=== PATIENT | male | born 1960 | race Caucasian/White ===

== ENCOUNTER → 2016-09-10 | Day surgery (SDC) | payer OTHER ==
[~2016-09-10] MED LIST: ATOR20TA58 PO; BISA-42 PO; CARV3.12 PO; DILT180C2 PO; FENTANYL PF 100 MCG/2 ML VIAL. IV PRN; GLYCOPYRROLATE 1 MG/5 ML VIAL. ONE; HYDROMORPHONE 2 MG/ML VIAL. IV PRN; IV RINGERS,LACTATED 1000ML 1,000 ML IV SCH; LIDOCAINE 1% 1 ML SYRINGE. ID PRN; LIDOCAINE 2% PF Vial for OR 5 ML VIAL. ONE; LOSA50TA6 PO; MORPHINE SULFATE 2 MG/ML DISP.SYRIN. IV PRN; ONDANSETRON PF 4 MG/2 ML VIAL. IV PRN; PROCHLORPERAZINE 10 MG/2 ML VIAL. IV PRN; PROPOFOL 40 ML IV ONE
[2016-09-10 10:15] VITALS: BP 121/76
--- NOTE | 2016-09-11 04:34 | HP ---
ADMIT DATE: 09/10/2016 REFERRING PHYSICIAN: ____ [facility]. HISTORY OF PRESENT ILLNESS: A 56-year-old male with past medical history significant for hyperlipidemia, hypertension, history of colonic polyps, who is seen for surveillance exam. I did notice bleeding approximately 2 months ago, which was ____ on its own, there has been no change in bowel habits, apparently ____ flatus well. With the continued symptoms history, recommend re-request the surveillance colonoscopy. PAST MEDICAL HISTORY: Hyperlipidemia, hypertension and history of colonic polyps. ALLERGIES: PENICILLIN. MEDICATIONS: Include Atorvastatin, Coreg, Cardizem and losartan. SOCIAL HISTORY: ____ does not drink. He is an ex-smoker. FAMILY HISTORY: Noncontributory. PAST SURGICAL HISTORY: Noncontributory. REVIEW OF SYSTEMS: HEENT: There is no decrease in visual acuity issues. CARDIAC: There is history of hypertension. ENDOCRINE: History of hyperlipidemia. PULMONARY: No shortness breath, productive cough or asthma. RENAL: No dysuria, frequency or hematuria. NEUROLOGIC: No stroke or migraine. PSYCHIATRIC: No mood swings, depression or insomnia. GASTROINTESTINAL: See history of present illness. HEMATOLOGIC: No bleeding, bruising or coagulopathy. PHYSICAL EXAMINATION: GENERAL: Reveals a well-nourished, well-developed male. VITAL SIGNS: Temperature is 97.6, pulse is 40, respirations 18. HEENT: Normocephalic, atraumatic head. Pupils and extraocular muscles not tested. Sclerae anicteric. NECK: Supple. LUNGS: Clear. CARDIOVASCULAR: Reveals an S1, S2 without S3, S4 or appreciable murmur. ABDOMEN: Reveals a soft abdomen, normal bowel sounds, without appreciable hepatosplenomegaly. EXTREMITIES: Reveals no cyanosis, clubbing or edema. IMPRESSION: Rectal bleeding, history of colonic polyps. Surveillance exam was recommended at this time. Risks and benefits of the procedure including the risk of hemorrhage or perforation have been previously discussed. The patient is willing to proceed. I would like to thank ____ [facility] facilities for allowing me to consult and participate in the patient's care. ALLISON SEGOVIA MD DR: INEZ/ayaz JOB#: [id number] / [id number]
== END | disposition home or self-care (01) ==
LOC: ENDOS 08:15 → EEVIPCON 09:30
PROVIDERS: ATTEND Internal Medicine Gastroenterology
DX: K64.0 First degree hemorrhoids (principal); K57.30 Diverticulosis of large intestine without perforation or abscess without bleeding; E78.5 Hyperlipidemia, unspecified; I10 Essential (primary) hypertension
CPT/HCPCS: 45378; J2704; J3490

== ENCOUNTER 2021-10-12 14:50 | Inpatient (IN) | payer MEDICAID, OTHER ==
[2021-10-12] VITALS (7 sets, daily range): BP systolic 109–151; BP diastolic 51–73
[~2021-10-12] VITALS: Ht 190.5 cm; Wt 85.9 kg
[~2021-10-12 14:50] MED LIST changes: +ACET325T21 PO; +ALPH300C PO; +AMLO-187 PO; +ASPI-886 PO; +CALC0.25 PO; +CALC200T3 PO; +CALC667T4 PO; +CARV25TA2 PO; +DOCU-109 PO; -FENTANYL PF 100 MCG/2 ML VIAL. IV PRN; +FURO-69 PO; -GLYCOPYRROLATE 1 MG/5 ML VIAL. ONE; -HYDROMORPHONE 2 MG/ML VIAL. IV PRN; +IRON100V2 IV; +ISOS30TA68 PO; -IV RINGERS,LACTATED 1000ML 1,000 ML IV SCH; +KETO5DRO4 EACHEYE; +LACT1CAP19 PO; +LEVO500T59 PO; -LIDOCAINE 1% 1 ML SYRINGE. ID PRN; -LIDOCAINE 2% PF Vial for OR 5 ML VIAL. ONE; +LISI-130 PO; +LOSA-73 PO; -LOSA50TA6 PO; -MORPHINE SULFATE 2 MG/ML DISP.SYRIN. IV PRN; +ONDA8TAB9 PO; -ONDANSETRON PF 4 MG/2 ML VIAL. IV PRN; +PANT20TA2 PO; -PROCHLORPERAZINE 10 MG/2 ML VIAL. IV PRN; -PROPOFOL 40 ML IV ONE; +RANI300T PO; +VIT1TABL57 PO; +aranesp IVP
[2021-10-12 15:13] LABS: BASO % 0 % (0-3); EOS # 0.2 x10^3/uL (0.0-0.7); EOS % 2 % (0-3); HEMOGLOBIN 7.2 g/dL (13.0-17.5); LYMPH # 0.7 x10^3/uL (1.0-4.8); LYMPH % 10 % (24-48); MEAN CORPUSCULAR HEMOGLOBIN 29 pg (25-35); MEAN CORPUSCULAR HGB CONC 31 g/dL (31-37); MEAN CORPUSCULAR VOLUME 94 fL (79-100); MONO # 0.4 x10^3/uL (0.0-1.1); MONO % 6 % (0-9); NEUT # 5.8 x10^3/uL (1.8-7.7); NEUT % 81 % (31-73); PLATELET COUNT 186 x10^3/uL (140-400); RED BLOOD COUNT 2.46 x10^6/uL (4.30-5.70); RED CELL DISTRIBUTION WIDTH 23.3 % (11.5-14.5); WHITE BLOOD COUNT 7.1 x10^3/uL (4.0-11.0)
[2021-10-12] MEDS ORDERED: dilTIAZem HCL 125 MG in IV DEXTROSE 5% 100ML 100 ML IV ONE (15:15)
[2021-10-12] MEDS ORDERED: fentaNYL PF VIAL 100 MCG/2 ML VIAL IV PRN (15:15)
[2021-10-12 15:25] LABS: CALCIUM 9.9 mg/dL (8.5-10.1); CREATININE 7.2 mg/dL (0.7-1.3); GFR 7.8; POTASSIUM 5.1 mmol/L (3.5-5.1)
--- NOTE | 2021-10-12 15:27 | RAD ---
EXAM: CHEST 1 VIEW History: Chest pain COMPARISON: None available. TECHNIQUE: Single portable radiograph of the chest FINDINGS: Mild cardiomegaly. Mild airspace opacities bilateral lungs likely atelectasis or infiltrat es. The costophrenic sulci are clear and well demarcated. IMPRESSION: Mild airspace opacities bilateral lungs likely atelectasis or infiltrates. Electronically signed by: Skip Shoemaker MD (10/12/2021 3:24 PM) [id number]
[2021-10-12 15:30] LABS: ALBUMIN/GLOBULIN RATIO 1.1 (1.0-1.7); MAGNESIUM 2.1 mg/dL (1.8-2.4); TOTAL BILIRUBIN 1.2 mg/dL (0.2-1.0); TOTAL PROTEIN 7.5 g/dL (6.4-8.2)
--- NOTE | 2021-10-12 15:39 | EKG ---
[facility] [address] [place] [address] Test Date: 2021-10-12 Test Time: 15:31:30 Pat Name: FERNANDO WRAY Department: Room: Gender: Clerk Cashier: : 1960 Requested By: TERRIE CRAWFORD Order Number: [id number] Reading MD: Hernandez Goyal Measurements Intervals [place] Rate: 117 P: NC: QRS: -40 QRSD: 126 T: 108 QT: 338 QTc: 476 Interpretive Statements ATRIAL FIBRILLATION WITH RVR ABNORMAL LEFT AXIS DEVIATION NON SPECIFIC INTRAVENTRICULAR BLOCK Electronically Signed On 10-17-2021 21:50:49 CDT by Hernandez Goyal
--- NOTE | 2021-10-12 15:40 | EKG ---
[facility] [address] [place] [address] Test Date: 2021-10-12 Test Time: 14:55:44 Pat Name: FERNANDO WRAY Department: Room: Gender: M Renewals Manager: : 1960 Requested By: TERRIE CRAWFORD Order Number: [id number] Reading MD: Hernandez Goyal Measurements Intervals [place] Rate: 124 P: AR: QRS: -40 QRSD: 122 T: 103 QT: 324 QTc: 470 Interpretive Statements ATRIAL FIBRILLATION WITH RVR LEFT VENTRICULAR HYPERTROPHY Electronically Signed On 10-17-2021 21:51:16 CDT by Hernandez Goyal
[2021-10-12] MEDS ORDERED: ONDANSETRON PF 4 MG/2 ML VIAL. IVP PRN (16:30)
[2021-10-12] MEDS ORDERED: NITROGLYCERIN SUBLINGUAL 0.4 MG BOTTLE OF 25. SL PRN (16:30)
[2021-10-12] MEDS ORDERED: fentaNYL PF VIAL 100 MCG/2 ML VIAL IVP PRN (16:30)
[2021-10-12] MEDS ORDERED: HEPARIN for IV BOLUS 10,000 UNIT/10 ML VIAL. IV PRN (16:30)
[2021-10-12] MEDS ORDERED: ACETAMINOPHEN 325 MG TABLET. PO PRN ×2 (16:30→16:45)
[2021-10-12] MEDS ORDERED: oxyCODONE/APAP 5/325 1 TAB TABLET PO PRN (16:45)
[2021-10-12] MEDS ORDERED: ELECTROLYTE (NON-ICU) PROTOCOL. MC PRN (16:45)
[2021-10-12] MEDS ORDERED: ZOLPIDEM 5 MG TABLET. PO PRN (16:45)
[2021-10-12] MEDS ORDERED: CALCIUM CARBONATE 500 MG TAB.CHEW PO PRN (16:45)
--- NOTE | 2021-10-12 16:48 | PDOC1 ---
History and Physical Date of Service: DOS: DATE: 10/12/21 TIME: 16:48 Chief Complaint: Chief Complain: Chest pain History of Present Illness: HPI: Patient is 61-year-old male prisoner who presented to the emergency room today due to chest pain. Patient has a history of ESRD and was getting dialysis when he felt he described as a lot of pressure on his chest along with fluttering. Reports never having a feeling like this before. Does report having a history of cardiomyopathy however has not seen a doctor in many years. Is on blood pressure medication through his jail. Does report the chest pressure is going up into his neck as well. Patient noted to be in A. fib with RVR in the emergency room. Started on Cardizem drip. Cardiology consulted. Past Medical/Surgical History: PMH/PSH: Additional Past Medical Histor: cardiomyopathy, ESRD Tuesday di alysis Additional Past Surgical Histo: left arm Fistula Smoking Status: Former Smoker Alcohol Use: None. No drug use Allergies: Allergies: Coded Allergies: Penicillins (Verified Allergy, Severe, ANAPHYLAXIS, 09/10/16) Family History: Family History: Hypertension Current Medications: Current Medications Current Medications Diltiazem HCl (Cardizem Iv Push) 10 mg 1X ONCE IVP Last administered on 10/12/21at 15:26; Start 10/12/21 at 15:15; Stop 10/12/21 at 15:16; Status DC Diltiazem HCl 125 mg/Sodium Chloride 125 ml @ 10 mls/hr 1X ONCE IV ; Start 10/12/21 at 15:15; Stop 10/12/21 at 15:14; Status DC Fentanyl Citrate (Fentanyl 2ml Vial) 50 mcg PRN Q15MIN PRN IV PAIN GREATER THAN 3/10 Last administered on 10/12/21at 15:18; Start 10/12/21 at 15:15; Stop 10/13/21 at 15:14 Diltiazem HCl 125 mg/Dextrose 125 ml @ 10 mls/hr 1X ONCE IV Last administered on 10/12/21at 15:32; Start 10/12/21 at 15:15; Stop 10/13/21 at 03:44 Heparin Sodium (Porcine) (Heparin Sodium) 4,000 unit 1X ONCE IV ; Start 10/12/21 at 17:00; Stop 10/12/21 at 17:01 Heparin Sodium/ Dextrose 250 ml @ 10.632 mls/ hr CONT PRN IV PER PROTOCOL; Start 10/12/21 at 16:30 Heparin Sodium (Porcine) (Heparin Sodium) 2,200 unit PRN Q6HRS PRN IV FOR UFH LEVEL LESS THAN 0.2; Start 10/12/21 at 16:30 Ondansetron HCl (Zofran) 4 mg PRN Q8HRS PRN IVP NAUSEA/VOMITING; Start 10/12/21 at 16:30; Stop 10/13/21 at 16:29 Fentanyl Citrate (Fentanyl 2ml Vial) 50 mcg PRN Q1HR PRN IVP PAIN; Start 10/12/21 at 16:30; Stop 10/13/21 at 16:29 Acetaminophen (Tylenol) 650 mg PRN Q4HRS PRN PO FEVER > 100.3'F; Start 10/12/21 at 16:30; Stop 10/13/21 at 16:29 Nitroglycerin (Nitrostat) 0.4 mg PRN Q5MIN PRN SL CHEST PAIN; Start 10/12/21 at 16:30; Stop 10/13/21 at 16:29 Amlodipine Besylate (Norvasc) 10 mg BID PO ; Start 10/12/21 at 21:00; Status UNV Aspirin (Ecotrin) 81 mg DAILYWBKFT PO ; Start 10/13/21 at 08:00 Furosemide (Lasix) 20 mg DAILY PO ; Start 10/13/21 at 09:00; Status UNV Isosorbide Mononitrate (Imdur) 30 mg DAILY PO ; Start 10/13/21 at 09:00; Status UNV Calcium Acetate (Phoslo) 667 mg TIDWMEALS PO ; Start 10/12/21 at 17:00 Carvedilol (Coreg) 25 mg BIDWMEALS PO ; Start 10/12/21 at 17:00 Pantoprazole Sodium (Protonix) 40 mg DAILYAC PO ; Start 10/13/21 at 07:30 Active Scripts Active Culturelle (Lactobacillus Rhamnosus Gg) 1 Each Cap.sprink 1 Cap PO BID 30 Days Aspirin Ec (Aspirin) 81 Mg Tablet.dr 81 Mg PO DAILYWBKFT 30 Days Reported Levaquin (Levofloxacin) 500 Mg Tablet 1 Tab PO QODAY Venofer (Iron Sucrose Complex) 100 Mg/5 Ml Vial 100 Mg IV WEEKLY Zaditor (Ketotifen Fumarate) 5 Ml Drops 1 Drop EACHEYE BID Tums (Calcium Carbonate) 200 Mg Tab.chew 400 Mg PO TIDWMEALS Ranitidine Hcl 300 Mg Tablet 1 Tab PO QHS Protonix (Pantoprazole Sodium) 20 Mg Tablet.dr 40 Mg PO DAILY Zofran (Ondansetron Hcl) 8 Mg Tablet 1 Tab PO Q8HRS Nephro-Luz Rx Tablet (Vit B Cmplx 3/Fa/Vit C/Biotin) 1 Each Tablet 1 Each PO DAILY Lisinopril 40 Mg Tablet 1 Tab PO HS Lasix (Furosemide) 20 Mg Tablet 1 Tab PO DAILY Isosorbide Mononitrate Er (Isosorbide Mononitrate) 30 Mg Tab.er.24h 30 Mg PO EVENING Colace (Docusate Sodium) 100 Mg Capsule 1 Cap PO BID Carvedilol 25 Mg Tablet 25 Mg PO BIDWMEALS Calcium Acetate 667 Mg Tablet 667 Mg PO TIDWMEALS Calcitriol 0.25 Mcg Capsule 0.25 Mcg PO QMWF [aranesp] 100 Mcg IVP TWICE WEEKLY Amlodipine Besylate 10 Mg Tablet 10 Mg PO BID Alpha Lipoic Acid 300 Mg Capsule 600 Mg PO BID Acetaminophen 325 Mg Tablet 325 Mg PO PRN Q6HRS Atorvastatin Calcium 20 Mg Tablet 20 Mg PO HS ROS: Review of Systems Review of System Unless noted in HPI 14 point review of systems is negative Physical Exam: Vital Signs: Vital Signs Date Time Temp Pulse Resp B/P (MAP) Pulse Ox O2 Delivery O2 Flow Rate FiO2 10/12/21 16:24 105 18 149/75 (99) 96 Room Air 10/12/21 14:55 98.3 98.3 Physcial Exam: GEN: No apparent distress. Alert and oriented HEENT: Normal cephalic, atraumatic, external auditory canals are patent EYES: Extraocular muscles are intact, pupil are equally round and reactive to light and accommodation MUSCULOSKELETAL: Well developed , well nourished, good range of motion ENDOCRINE: No thyromegaly was palpated LYMPHATICS: No cervical chain or axillary nodes were noted HEMATOPOIETIC: No bruising NECK: Supple, no JVD, no thyromegaly was noted LUNGS: Clear to auscultation in all lung [place] without rhonchi or wheezing HEART: RRR, S!, S2 present. Peripheral pulses intact, no obvious murmurs noted ABDOMEN: Soft, nontender. Positive bowel sounds, no organomegaly, normal bowel sounds EXTREMITIES: Without clubbing, cyanosis, or edema. Pedal pulses intact. Negative Homans sign NEUROLOGIC: Normal speech and tone. A&O x 3, moves all extremities, no obvious focal deficits PSYCHIATRIC: Normal affect, normal mood. Stable SKIN: No ulcerations or rashes, good skin turgor, no jaundice VASCULAR: Good capillary refill, neurovascular bundle appears to be intact Labs: Labs: Laboratory Tests Test 10/12/21 15:03 White Blood Count 7.1 x10^3/uL (4.0-11.0) Red Blood Count 2.46 x10^6/uL (4.30-5.70) Hemoglobin 7.2 g/dL (13.0-17.5) Hematocrit 23.0 % (39.0-53.0) Mean Corpuscular Volume 94 fL (79-100) Mean Corpuscular Hemoglobin 29 pg (25-35) Mean Corpuscular Hemoglobin Concent 31 g/dL (31-37) Red Cell Distribution Width 23.3 % (11.5-14.5) Platelet Count 186 x10^3/uL (140-400) Neutrophils (%) (Auto) 81 % (31-73) Lymphocytes (%) (Auto) 10 % (24-48) Monocytes (%) (Auto) 6 % (0-9) Eosinophils (%) (Auto) 2 % (0-3) Basophils (%) (Auto) 0 % (0-3) Neutrophils # (Auto) 5.8 x10^3/uL (1.8-7.7) Lymphocytes # (Auto) 0.7 x10^3/uL (1.0-4.8) Monocytes # (Auto) 0.4 x10^3/uL (0.0-1.1) Eosinophils # (Auto) 0.2 x10^3/uL (0.0-0.7) Basophils # (Auto) 0.0 x10^3/uL (0.0-0.2) Sodium Level 139 mmol/L (136-145) Potassium Level 5.1 mmol/L (3.5-5.1) Chloride Level 97 mmol/L (98-107) Carbon Dioxide Level 31 mmol/L (21-32) Anion Gap 11 (6-14) Blood Urea Nitrogen 50 mg/dL (8-26) Creatinine 7.2 mg/dL (0.7-1.3) Estimated GFR (Cockcroft-Gault) 7.8 BUN/Creatinine Ratio 7 (6-20) Glucose Level 105 mg/dL (70-99) Calcium Level 9.9 mg/dL (8.5-10.1) Magnesium Level 2.1 mg/dL (1.8-2.4) Total Bilirubin 1.2 mg/dL (0.2-1.0) Aspartate Amino Transf (AST/SGOT) 14 U/L (15-37) Alanine Aminotransferase (ALT/SGPT) 16 U/L (16-63) Alkaline Phosphatase 71 U/L (46-116) Troponin I High Sensitivity 713 ng/L (4-75) UN-Zax-L-Type Natriuretic Peptide > 31357 pg/mL (0-124) Total Protein 7.5 g/dL (6.4-8.2) Albumin 4.0 g/dL (3.4-5.0) Albumin/Globulin Ratio 1.1 (1.0-1.7) Laboratory Tests Test 10/12/21 15:03 White Blood Count 7.1 x10^3/uL (4.0-11.0) Red Blood Count 2.46 x10^6/uL (4.30-5.70) Hemoglobin 7.2 g/dL (13.0-17.5) Hematocrit 23.0 % (39.0-53.0) Mean Corpuscular Volume 94 fL (79-100) Mean Corpuscular Hemoglobin 29 pg (25-35) Mean Corpuscular Hemoglobin Concent 31 g/dL (31-37) Red Cell Distribution Width 23.3 % (11.5-14.5) Platelet Count 186 x10^3/uL (140-400) Neutrophils (%) (Auto) 81 % (31-73) Lymphocytes (%) (Auto) 10 % (24-48) Monocytes (%) (Auto) 6 % (0-9) Eosinophils (%) (Auto) 2 % (0-3) Basophils (%) (Auto) 0 % (0-3) Neutrophils # (Auto) 5.8 x10^3/uL (1.8-7.7) Lymphocytes # (Auto) 0.7 x10^3/uL (1.0-4.8) Monocytes # (Auto) 0.4 x10^3/uL (0.0-1.1) Eosinophils # (Auto) 0.2 x10^3/uL (0.0-0.7) Basophils # (Auto) 0.0 x10^3/uL (0.0-0.2) Sodium Level 139 mmol/L (136-145) Potassium Level 5.1 mmol/L (3.5-5.1) Chloride Level 97 mmol/L (98-107) Carbon Dioxide Level 31 mmol/L (21-32) Anion Gap 11 (6-14) Blood Urea Nitrogen 50 mg/dL (8-26) Creatinine 7.2 mg/dL (0.7-1.3) Estimated GFR (Cockcroft-Gault) 7.8 BUN/Creatinine Ratio 7 (6-20) Glucose Level 105 mg/dL (70-99) Calcium Level 9.9 mg/dL (8.5-10.1) Magnesium Level 2.1 mg/dL (1.8-2.4) Total Bilirubin 1.2 mg/dL (0.2-1.0) Aspartate Amino Transf (AST/SGOT) 14 U/L (15-37) Alanine Aminotransferase (ALT/SGPT) 16 U/L (16-63) Alkaline Phosphatase 71 U/L (46-116) Troponin I High Sensitivity 713 ng/L (4-75) MW-Xcf-Q-Type Natriuretic Peptide > 14409 pg/mL (0-124) Total Protein 7.5 g/dL (6.4-8.2) Albumin 4.0 g/dL (3.4-5.0) Albumin/Globulin Ratio 1.1 (1.0-1.7) Assessment/Plan Assessment/Plan Chest pain secondary to A. fib with RVR, history diastolic CHF, history of cardiomyopathy, troponinemia. History hypertension. Normocytic anemia -1 day history of chest pressure. History of cardiomyopathy he does not frequently follow with doctors -Cardiology consult -Aspirin echo ordered. Holding off on heparin drip per cardiology -Basic anemia work-up -Nephrology consult for ESRD history. MWF dialysis, did receive today 10/12 -Cardiac diet. N.p.o. midnight -Check thyroid lipids -Home meds as indicated Advanced care planning for 18 minutes Justifications for Admission Other Justification TONIO SEAMAN MD Oct 12, 2021 16:48
--- NOTE | 2021-10-12 16:55 | ED.ADGEN ---
Past Medical History Additional Past Medical Histor: cardiomyopathy Past Surgical History: Other Additional Past Surgical Histo: left arm Fistula Smoking Status: Former Smoker Alcohol Use: None General Adult EDM: Chief Complaint: NECK PAIN HPI: HPI: Patient is a 61 year old male coming in via EMS from [facility] for chest pain. Patient is a hemodialysis patient and was in the middle of getting dialysis when he felt pain in his chest that he describes as "kicking". Patient states it is not worse than the chronic pain he had in his neck and his arm. Patient denies any cardiac history, but does have history of hypertension. Patient will agree with nitroglycerin route which relieved his pain, also given 450 cc of LR and 325 mg ASA. Patient had a EKG done in [facility] for rate routine screening exam that showed normal sinus rhythm. Review of Systems: Review of Systems: All other systems within normal limits except for as noted in the HPI Current Medications: Current Medications Medications (Trade) Dose Ordered Sig/Guillermo Start Time Stop Time Status Last Admin Dose Admin Acetaminophen (Tylenol) 650 mg PRN Q6HRS PRN 10/12/21 16:45 UNV Amlodipine Besylate (Norvasc) 10 mg BID 10/12/21 21:00 UNV Aspirin (Ecotrin) 81 mg DAILYWBKFT 10/13/21 08:00 Calcium Acetate (Phoslo) 667 mg TIDWMEALS 10/12/21 17:00 Calcium Carbonate/ Glycine (Tums) 500 mg PRN Q3HRS PRN 10/12/21 16:45 UNV Carvedilol (Coreg) 25 mg BIDWMEALS 10/12/21 17:00 Diltiazem HCl (Cardizem Iv Push) 10 mg 1X ONCE 10/12/21 15:15 10/12/21 15:16 DC 10/12/21 15:26 10 MG Diltiazem HCl 125 mg/Dextrose 125 ml @ 10 mls/hr 1X ONCE 10/12/21 15:15 10/13/21 03:44 10/12/21 15:32 10 MLS/HR Diltiazem HCl 125 mg/Sodium Chloride 125 ml @ 10 mls/hr 1X ONCE 10/12/21 15:15 10/12/21 15:14 DC Fentanyl Citrate (Fentanyl 2ml Vial) 50 mcg PRN Q1HR PRN 10/12/21 16:30 10/13/21 16:29 Furosemide (Lasix) 20 mg DAILY 10/13/21 09:00 Heparin Sodium (Porcine) (Heparin Sodium) 2,200 unit PRN Q6HRS PRN 10/12/21 16:30 Heparin Sodium/ Dextrose 250 ml @ 10.632 mls/ hr CONT PRN 10/12/21 16:30 Info (Non-Icu Electrolyte Protocol) 1 ea PRN DAILY PRN 10/12/21 16:45 UNV Isosorbide Mononitrate (Imdur) 30 mg DAILY 10/13/21 09:00 Nitroglycerin (Nitrostat) 0.4 mg PRN Q5MIN PRN 10/12/21 16:30 10/13/21 16:29 Ondansetron HCl (Zofran) 4 mg PRN Q6HRS PRN 10/12/21 16:45 UNV Oxycodone/ Acetaminophen (Percocet 5/325) 2 tab PRN Q4HRS PRN 10/12/21 16:45 UNV Pantoprazole Sodium (Protonix) 40 mg DAILYAC 10/13/21 07:30 Senna/Docusate Sodium (Senna Plus) 1 tab BID 10/12/21 21:00 UNV Zolpidem Tartrate (Ambien) 5 mg PRN QHS PRN 10/12/21 16:45 UNV Allergies: Allergies: Allergies Coded Allergies Type Severity Reaction Last Updated Verified Penicillins Allergy Severe ANAPHYLAXIS 09/10/16 Yes Physical Exam: PE: Constitutional: Well developed, well nourished, no acute distress, non-toxic appearance. [] HENT: Normocephalic, atraumatic, bilateral external ears normal, nose normal. [] Eyes: PERRLA, conjunctiva normal, no discharge. [] Neck: No rigidity, supple, no stridor. [] Cardiovascular: Tachycardic, irregular regular rhythm, brisk cap refill. Dialysis fistula left arm [] Lungs & Thorax: Non labored symmetric respirations, no tachypnea or respiratory distress [] Abdomen: Soft, nondistended. Skin: Warm, dry, no erythema, no rash. [] Back: Unremarkable Extremities: No deformities, range of motion grossly intact, no lower extremity edema [] Neurologic: Alert and oriented X 3, no focal deficits noted. [] Psychologic: Affect normal, judgement normal, mood normal. [] Current Patient Data: Labs: Laboratory Tests Test 10/12/21 15:03 White Blood Count 7.1 x10^3/uL (4.0-11.0) Red Blood Count 2.46 x10^6/uL (4.30-5.70) L Hemoglobin 7.2 g/dL (13.0-17.5) L Hematocrit 23.0 % (39.0-53.0) L Mean Corpuscular Volume 94 fL (79-100) Mean Corpuscular Hemoglobin 29 pg (25-35) Mean Corpuscular Hemoglobin Concent 31 g/dL (31-37) Red Cell Distribution Width 23.3 % (11.5-14.5) H Platelet Count 186 x10^3/uL (140-400) Neutrophils (%) (Auto) 81 % (31-73) H Lymphocytes (%) (Auto) 10 % (24-48) L Monocytes (%) (Auto) 6 % (0-9) Eosinophils (%) (Auto) 2 % (0-3) Basophils (%) (Auto) 0 % (0-3) Neutrophils # (Auto) 5.8 x10^3/uL (1.8-7.7) Lymphocytes # (Auto) 0.7 x10^3/uL (1.0-4.8) L Monocytes # (Auto) 0.4 x10^3/uL (0.0-1.1) Eosinophils # (Auto) 0.2 x10^3/uL (0.0-0.7) Basophils # (Auto) 0.0 x10^3/uL (0.0-0.2) Platelet Estimate Pending Sodium Level 139 mmol/L (136-145) Potassium Level 5.1 mmol/L (3.5-5.1) Chloride Level 97 mmol/L (98-107) L Carbon Dioxide Level 31 mmol/L (21-32) Anion Gap 11 (6-14) Blood Urea Nitrogen 50 mg/dL (8-26) H Creatinine 7.2 mg/dL (0.7-1.3) H Estimated GFR (Cockcroft-Gault) 7.8 BUN/Creatinine Ratio 7 (6-20) Glucose Level 105 mg/dL (70-99) H Calcium Level 9.9 mg/dL (8.5-10.1) Magnesium Level 2.1 mg/dL (1.8-2.4) Total Bilirubin 1.2 mg/dL (0.2-1.0) H Aspartate Amino Transferase (AST) 14 U/L (15-37) L Alanine Aminotransferase (ALT) 16 U/L (16-63) Alkaline Phosphatase 71 U/L (46-116) Troponin I High Sensitivity 713 ng/L (4-75) H WR-Wrf-K-Type Natriuretic Peptide > 02481 pg/mL (0-124) H Total Protein 7.5 g/dL (6.4-8.2) Albumin 4.0 g/dL (3.4-5.0) Albumin/Globulin Ratio 1.1 (1.0-1.7) Laboratory Tests 10/12/21 15:03 Laboratory Tests 10/12/21 15:03 Vital Signs: Vital Signs Date Time Temp Pulse Resp B/P (MAP) Pulse Ox O2 Delivery O2 Flow Rate FiO2 10/12/21 16:24 105 18 149/75 (99) 96 Room Air 10/12/21 14:55 98.3 98.3 EKG: EKG: [] Heart Score: C/O Chest Pain: Yes HEART Score for Chest Pain: HEART Score for Chest Pain Response (Comments) Value History Moderately Suspicious 1 ECG Nonspecific Repolarizatio 1 Age >45 - < 65 1 Risk Factors 1 or 2 Risk Factors 1 Troponin >3 x Normal Limit 2 Total 6 Risk Factors: Risk Factors: DM, Current or recent (<one month) smoker, HTN, HLP, family history of CAD, obesity. Risk Scores: Score 0 - 3: 2.5% MACE over next 6 weeks - Discharge Home Score 4 - 6: 20.3% MACE over next 6 weeks - Admit for Clinical Observation Score 7 - 10: 72.7% MACE over next 6 weeks - Early Invasive Strategies Radiology/Procedures: Radiology/Procedures: [facility] [address] [place] [address] IMAGING REPORT Signed PATIENT: FERNANDO WRAY ACCOUNT: [id number] : 1960 LOCATION: ER AGE: 61 SEX: M EXAM STATUS: REG ER ORD. PHYSICIAN: TERRIE CRAWFORD MD REASON: chest pain PROCEDURE: PORTABLE CHEST 1V EXAM: CHEST 1 VIEW History: Chest pain COMPARISON: None available. TECHNIQUE: Single portable radiograph of the chest FINDINGS: Mild cardiomegaly. Mild airspace opacities bilateral lungs likely atelectasis or infiltrates. The costophrenic sulci are clear and well demarcated. IMPRESSION: Mild airspace opacities bilateral lungs likely atelectasis or infiltrates. Electronically signed by: Skip Dai MD (10/12/2021 3:24 PM) [id number] DICTATED and SIGNED BY: SKIP DAI MD DATE: 10/12/211520 [] Course & Med Decision Making: Course & Med Decision Making Pertinent Labs and Imaging studies reviewed. (See chart for details) Placed to cardiology. Patient started on heparin and diltiazem for A. fib and likely type II NSTEMI. [] Dragon Disclaimer: Dragrandy Disclaimer: This electronic medical record was generated, in whole or in part, using a voice recognition dictation system. Departure Departure Impression: Primary Impression: A-fib Additional Impressions: Anemia NSTEMI (non-ST elevated myocardial infarction) Disposition: ADMITTED INPATIENT Admitting Physician: LILIANA Condition: GUARDED Referrals: NO PCP (PCP) Problem Qualifiers TERRIE CRAWFORD MD Oct 12, 2021 16:55
[2021-10-12] MEDS ORDERED: HEPARIN for IV BOLUS 10,000 UNIT/10 ML VIAL. IV ONE (17:00)
[2021-10-12] MEDS ORDERED: CARVEDILOL 12.5 MG TABLET. PO SCH (17:00)
[2021-10-12 17:02] LABS: PROTHROMBIN TIME PATIENT 14.6 SEC (11.7-14.0)
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
[2021-10-12] MEDS ORDERED: ASPIRIN CHEWABLE 81 MG TABLET. PO ONE (17:15)
[2021-10-12] MEDS: METOPROLOL SUCC 24HR ER 50 MG TAB.ER.24H. PO SCH (17:49)
[2021-10-12 17:54] LABS: PLT ESTIMATE ADEQUATE (ADEQUATE)
[2021-10-12] MEDS: HEPARIN 25,000UTS/250ML PREMIX 250 ML IV PRN (17:54)
[2021-10-12 17:55] LABS: HYPOCHROMIA MOD; POLYCHROMASIA SLIGHT
[2021-10-12 17:57] LABS: ANISOCYTOSIS MOD; MICROCYTOSIS SLIGHT; POIKILOCYTOSIS MOD
[2021-10-12 17:58] LABS: SCHISTOCYTES FEW
[2021-10-12] MEDS: CALCIUM ACETATE 667 MG CAPSULE PO SCH (18:53)
[2021-10-12 19:40] LABS: BASO # 0.1 x10^3/uL (0.0-0.2); BASO % 1 % (0-3); EOS # 0.2 x10^3/uL (0.0-0.7); EOS % 2 % (0-3); HEMATOCRIT 23.2 % (39.0-53.0); HEMOGLOBIN 7.1 g/dL (13.0-17.5); LYMPH # 1.2 x10^3/uL (1.0-4.8); LYMPH % 14 % (24-48); MEAN CORPUSCULAR HEMOGLOBIN 29 pg (25-35); MEAN CORPUSCULAR HGB CONC 31 g/dL (31-37); MEAN CORPUSCULAR VOLUME 95 fL (79-100); MONO # 0.5 x10^3/uL (0.0-1.1); MONO % 5 % (0-9); NEUT % 78 % (31-73); PLATELET COUNT 188 x10^3/uL (140-400); RED BLOOD COUNT 2.44 x10^6/uL (4.30-5.70); RED CELL DISTRIBUTION WIDTH 23.6 % (11.5-14.5)
[2021-10-12] MEDS ORDERED: [UNRECOGNIZED DRUG - CODE] IV (21:56)
[2021-10-12] MEDS ORDERED: METH200S IV (21:56)
[2021-10-12] MEDS ORDERED: FERR210T PO (21:56)
[2021-10-12] MEDS ORDERED: ONDA-84 PO (21:56)
[2021-10-12] MEDS ORDERED: CALC200T3 PO (21:56)
[2021-10-12] MEDS ORDERED: HYDR-2868 PO (21:56)
[2021-10-12] MEDS ORDERED: CALC0.5C8 PO (21:56)
[2021-10-12] MEDS ORDERED: TOLN108P2 TP (21:56)
[2021-10-12] MEDS ORDERED: CINA60TA PO (21:56)
[2021-10-12] MEDS: ATORVASTATIN CALCIUM 20 MG TABLET PO SCH (22:51)
[2021-10-12] MEDS: SENNOSIDES/DOCUSATE 8.6/50MG TABLET. PO SCH (22:52)
[2021-10-12] MEDS: hydrALAZINE 25 MG TABLET PO SCH (22:52)
[2021-10-12] MEDS: CALCITRIOL 0.25 MCG CAPSULE. PO SCH (22:52)
[2021-10-12] MEDS: oxyCODONE/APAP 5/325 1 TAB TABLET PO PRN (22:57)
[2021-10-13] VITALS (18 sets, daily range): BP systolic 67–161; BP diastolic 53–73
--- NOTE | 2021-10-13 02:42 | EKG ---
[facility] [address] [place] [address] Test Date: 2021-10-12 Test Time: 16:30:46 Pat Name: FERNANDO WRAY Department: Room: [facility] Gender: M Senior Account Representative: : 1960 Requested By: MOHINI MEEKS Order Number: [id number] Reading MD: Catarino Khan MD Measurements Intervals [place] Rate: 109 P: [place]: QRS: -44 QRSD: 124 T: 126 QT: 344 QTc: 465 Interpretive Statements ATRIAL FIBRILLATION WITH RVR IVCD Electronically Signed On 10-13-2021 6:53:09 CDT by Catarino Khan MD
[2021-10-13] MEDS: HEPARIN 25,000UTS/250ML PREMIX 250 ML IV PRN (03:01)
[2021-10-13] MEDS ORDERED: PERFLUTREN PROTEIN-A MICROSPHR 0.22 MG/ML 3 ML VIAL. IV ONE ×2 (07:00→07:29)
[2021-10-13] MEDS: ASPIRIN ENTERIC COATED 81 MG TABLET.DR. PO SCH (08:00)
[2021-10-13] MEDS: CALCIUM ACETATE 667 MG CAPSULE PO SCH ×3 (08:00→19:21)
[2021-10-13] MEDS: PANTOPRAZOLE 40 MG TABLET.DR. PO SCH (08:47)
[2021-10-13] MEDS: METOPROLOL SUCC 24HR ER 50 MG TAB.ER.24H. PO SCH (08:48)
[2021-10-13] MEDS: ISOSORBIDE MONONITRATE ER 30 MG TAB.ER.24H PO SCH (08:48)
[2021-10-13] MEDS: hydrALAZINE 25 MG TABLET PO SCH ×3 (08:49→20:51)
[2021-10-13] MEDS: SENNOSIDES/DOCUSATE 8.6/50MG TABLET. PO SCH ×2 (09:00→20:45)
[2021-10-13] MEDS ORDERED: NON FORMULARY ITEM (Ferric Citrate 2 TAB) PO SCH (09:00)
[2021-10-13] MEDS: CINACALCET HCL 30 MG TABLET PO SCH (09:00)
[2021-10-13] MEDS: FUROSEMIDE 20 MG TABLET PO SCH (09:00)
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
[2021-10-13] MEDS ORDERED: CLOPIDOGREL BISULFATE 75 MG TABLET PO ONE ×3 (10:15→19:00)
[2021-10-13] MEDS ORDERED: IODIXANOL 320 MG/ML 100 ML VIAL. ONE (10:30)
[2021-10-13] MEDS ORDERED: LIDOCAINE 1% Multi-Dose 20 ML VIAL. ONE ×2 (10:30→10:31)
[2021-10-13] MEDS ORDERED: MIDAZOLAM HCL/PF 2 MG/2 ML VIAL. ONE (10:55)
[2021-10-13] MEDS ORDERED: fentaNYL PF VIAL 100 MCG/2 ML VIAL ONE (10:55)
[2021-10-13] MEDS ORDERED: IODIXANOL 320 MG/ML 100 ML VIAL. IART ONE (11:30)
[2021-10-13] MEDS ORDERED: fentaNYL PF VIAL 100 MCG/2 ML VIAL IV ONE (11:30)
[2021-10-13] MEDS ORDERED: LIDOCAINE 2% Multi-Dose 20 ML VIAL. IJ ONE (11:30)
[2021-10-13] MEDS ORDERED: MIDAZOLAM HCL/PF 2 MG/2 ML VIAL. IV ONE (11:30)
--- NOTE | 2021-10-13 12:15 | CARD ---
MR#: [id number] Date of Study: 10/13/2021 Ordering Physician: MELISSA KHAN, Referring Physician: MELISSA KHAN, Tech: Alanna Bo APPROVED REPORT Technologist: Alanna Bo Nurse: Radha Bryant RN Procedure(s) performed: fl time: 3.0 min dose: 72 gycm2 contrast: 66 ml moderate sedation: 32 mins [facility], Coronary angiography HISTORY : The patient is a 61 year-old male with a history of . INDICATION The indication(s) include : non-STEMI . [facility] Clinical Frailty Scale [facility] Clinical Frailty Scale: Moderately Frail Heart Failure Heart Failure: Yes If Yes, Newly Diagnosed: Yes If Yes, HF Type: Diastolic If Yes, NYHA Class: Class III CASE TECHNIQUE IV conscious sedation was used throughout procedure with appropriate monitoring and was performed in the presence of a registered nurse who was an independent trained observer other than the physician p erforming the procedure. During this case, Fluoroscopy and low osmolar contrast were used for imaging . Specimen(s) Removed: N/A Estimated Blood loss: 10 cc's. PROCEDURE NARRATIVE Clinical information: 61-year-old male presented to the hospital with atrial fibrillation with RVR, heart failure and a non -STEMI. In this setting he was taken to the [facility] for further evaluation. Procedure details: Under 1% lidocaine local anesthesia a 5 Samoan sheath was inserted in the right common femoral artery via the modified Seldinger technique. Next, a 5 Samoan JL4, JR4 catheters were used to perform diag nostic angiography and obtain a left ventricular end-diastolic pressure. Pullback was then performed . At case completion all catheters and sheaths were removed and hemostasis was achieved via manual c ompression. Findings: LVEDP 34 mmHg No LV to aortic pullback gradient. Coronary angiography: Left main is a large-caliber vessel with a distal 20% stenosis Left circumflex is a small to moderate caliber nondominant vessel with mild luminal irregularities LAD is a large-caliber vessel with a mid occlusion. The mid and distal vessel are seen to fill via l eft to left collaterals. D1 and D2 are small caliber vessels RCA is a very large caliber dominant vessel with heavily calcified proximal to mid 80% stenosis. Conclusion 1. Acute on chronic systolic and diastolic heart failure, LVEDP 34 mmHg 2. Severe [place] two-vessel coronary artery disease Recommendations 1. Given the patient's end-stage renal disease history, severe anemia history he would likely not be an optimal candidate for bypass surgery. He would also be at high risk for PCI given the complex na ture of his coronary disease with heavy calcification and chronic total occlusion. We will plan for obtaining a echocardiogram and determining his ejection fraction after adequate fluid removal. Shadi ticandy we will consider complex PCI in the next 48 hours after discussion with family. We will need to discuss his case with the primary [facility] administrative personnel to obtain ways to identify his family members and speak with them before high risk interventions. 2. Start Plavix 75 mg daily with a 300 mg load as a challenge to determine if his anemia worsens 3. Supportive care for now. Signed by : Melissa Khan, Electronically Approved : 10/13/2021 12:15:24
--- NOTE | 2021-10-13 13:40 | PDOC ---
[employer] PROGRESS NOTE Date of Service DOS: DATE: 10/13/21 TIME: 13:12 Chief Complaint Chief Complaint Unstable angina - CAD on [facility] 10/13/2021, needs referral for CABG vs high risk PCI New onset AFIB with RVR; rate now controlled. Anemia of chronic disease Acute on chronic diastolic CHF - due to above H/o cardiomyopathy; most recent echo 08/2018 wt LVEF 50% LBBB ESRD on HD - MWF History of Present Illness History of Present Illness Mr Norman is a 61-year-old [facility] inmate w/ PMHx ESRD on HD on MWF who presented to the emergency room 10/12 with c/o chest pain. Patient has a history of ESRD and was getting dialysis when he felt he described as a lot of pressure on his chest along with fluttering. Reports never having a feeling like this before. He states he thinks that they pulled more fluid leading to his symptoms Is on blood pressure medication through his fdc. Does report the chest pressure was going up into his neck as well. Patient noted to be in A. fib with RVR in the emergency room. Started on Cardizem drip. Currently denies any CP or SOB, states I dont have any fluid on me. Denies N/V/D. No F/C, No abdominal pain 10/13: To cardiac catheterization today with severe CAD no interventions given need discussion for referral for CABG consideration versus complex PCI. He has requested to discuss with his and cardiology plans to do so as well. Vitals/I&O Vitals/I&O: Vital Signs Date Time Temp Pulse Resp B/P (MAP) Pulse Ox O2 Delivery O2 Flow Rate FiO2 10/13/21 11:34 66 22 95 Nasal Cannula 2.0 10/13/21 10:39 97.9 140/63 (88) 97.9 I & O 10/12/21 10/12/21 10/13/21 15:00 23:00 07:00 Intake Total 400 ml 0 ml Balance 400 ml 0 ml Physical Exam General: Alert, Oriented X3, Cooperative, No acute distress Heart: Other (AFIB ) Lungs: Clear Abdomen: Soft Extremities: No edema Skin: No significant lesion Labs Labs: Laboratory Tests Test 10/12/21 15:03 10/12/21 19:15 10/13/21 01:38 10/13/21 08:02 White Blood Count 7.1 x10^3/uL (4.0-11.0) 9.0 x10^3/uL (4.0-11.0) Red Blood Count 2.46 x10^6/uL (4.30-5.70) 2.44 x10^6/uL (4.30-5.70) Hemoglobin 7.2 g/dL (13.0-17.5) 7.1 g/dL (13.0-17.5) Hematocrit 23.0 % (39.0-53.0) 23.2 % (39.0-53.0) Mean Corpuscular Volume 94 fL (79-100) 95 fL (79-100) Mean Corpuscular Hemoglobin 29 pg (25-35) 29 pg (25-35) Mean Corpuscular Hemoglobin Concent 31 g/dL (31-37) 31 g/dL (31-37) Red Cell Distribution Width 23.3 % (11.5-14.5) 23.6 % (11.5-14.5) Platelet Count 186 x10^3/uL (140-400) 188 x10^3/uL (140-400) Neutrophils (%) (Auto) 81 % (31-73) 78 % (31-73) Lymphocytes (%) (Auto) 10 % (24-48) 14 % (24-48) Monocytes (%) (Auto) 6 % (0-9) 5 % (0-9) Eosinophils (%) (Auto) 2 % (0-3) 2 % (0-3) Basophils (%) (Auto) 0 % (0-3) 1 % (0-3) Neutrophils # (Auto) 5.8 x10^3/uL (1.8-7.7) 7.0 x10^3/uL (1.8-7.7) Lymphocytes # (Auto) 0.7 x10^3/uL (1.0-4.8) 1.2 x10^3/uL (1.0-4.8) Monocytes # (Auto) 0.4 x10^3/uL (0.0-1.1) 0.5 x10^3/uL (0.0-1.1) Eosinophils # (Auto) 0.2 x10^3/uL (0.0-0.7) 0.2 x10^3/uL (0.0-0.7) Basophils # (Auto) 0.0 x10^3/uL (0.0-0.2) 0.1 x10^3/uL (0.0-0.2) Platelet Estimate Adequate (ADEQUATE) Polychromasia Slight Hypochromasia Mod Poikilocytosis Mod Anisocytosis Mod Microcytosis Slight Macrocytosis Slight Schistocytes Few Prothrombin Time 14.6 SEC (11.7-14.0) Prothromb Time International Ratio 1.2 (0.8-1.1) Activated Partial Thromboplast Time 34 SEC (24-38) Sodium Level 139 mmol/L (136-145) Potassium Level 5.1 mmol/L (3.5-5.1) Chloride Level 97 mmol/L (98-107) Carbon Dioxide Level 31 mmol/L (21-32) Anion Gap 11 (6-14) Blood Urea Nitrogen 50 mg/dL (8-26) Creatinine 7.2 mg/dL (0.7-1.3) Estimated GFR (Cockcroft-Gault) 7.8 BUN/Creatinine Ratio 7 (6-20) Glucose Level 105 mg/dL (70-99) Calcium Level 9.9 mg/dL (8.5-10.1) Magnesium Level 2.1 mg/dL (1.8-2.4) Total Bilirubin 1.2 mg/dL (0.2-1.0) Aspartate Amino Transf (AST/SGOT) 14 U/L (15-37) Alanine Aminotransferase (ALT/SGPT) 16 U/L (16-63) Alkaline Phosphatase 71 U/L (46-116) Troponin I High Sensitivity 713 ng/L (4-75) 1691 ng/L (4-75) AN-Wxa-U-Type Natriuretic Peptide > 41125 pg/mL (0-124) Total Protein 7.5 g/dL (6.4-8.2) Albumin 4.0 g/dL (3.4-5.0) Albumin/Globulin Ratio 1.1 (1.0-1.7) Thyroid Stimulating Hormone (TSH) 0.776 uIU/mL (0.358-3.74) Heparin Anti-Xa Act, Unfractionated < 0.10 IU/mL (0.30-0.70) 0.14 IU/mL (0.30-0.70) Test 10/13/21 10:00 Troponin I High Sensitivity 5393 ng/L (4-75) Assessment and Plan Assessmemt and Plan Problems Medical Problems: (1) NSTEMI (non-ST elevated myocardial infarction) Status: Acute Comment Review of Relevant I have reviewed the following items zaina (where applicable) has been applied. Medications: Current Medications Medications (Trade) Dose Ordered Sig/Guillermo Route PRN Reason Start Time Stop Time Status Last Admin Dose Admin Diltiazem HCl (Cardizem Iv Push) 10 mg 1X ONCE IVP 10/12/21 15:15 10/12/21 15:16 DC 10/12/21 15:26 Fentanyl Citrate (Fentanyl 2ml Vial) 50 mcg PRN Q15MIN PRN IV PAIN GREATER THAN 09/2410/12/21 15:15 10/13/21 15:14 10/12/21 15:18 Diltiazem HCl 125 mg/Dextrose 125 ml @ 10 mls/hr 1X ONCE IV 10/12/21 15:15 10/13/21 03:44 DC 10/12/21 15:32 Heparin Sodium (Porcine) (Heparin Sodium) 4,000 unit 1X ONCE IV 10/12/21 17:00 10/13/21 13:08 DC 10/12/21 17:53 Heparin Sodium/ Dextrose 250 ml @ 10.632 mls/ hr CONT PRN IV PER PROTOCOL 10/12/21 16:30 10/13/21 13:08 DC 10/13/21 03:01 Heparin Sodium (Porcine) (Heparin Sodium) 2,200 unit PRN Q6HRS PRN IV FOR UFH LEVEL LESS THAN 0.2 10/12/21 16:30 10/13/21 13:08 DC 10/13/21 03:00 Isosorbide Mononitrate (Imdur) 30 mg DAILY PO 10/13/21 09:00 10/13/21 08:48 Calcium Acetate (Phoslo) 667 mg TIDWMEALS PO 10/12/21 17:00 10/12/21 18:53 Pantoprazole Sodium (Protonix) 40 mg DAILYAC PO 10/13/21 07:30 10/13/21 08:47 Oxycodone/ Acetaminophen (Percocet 5/325) 2 tab PRN Q4HRS PRN PO MODERATE PAIN, SEVERE PAIN 10/12/21 16:45 10/12/21 22:57 Senna/Docusate Sodium (Senna Plus) 1 tab BID PO 10/12/21 21:00 10/12/21 22:52 Atorvastatin Calcium (Lipitor) 20 mg HS PO 10/12/21 21:00 10/12/21 22:51 Aspirin (Aspirin Chewable) 324 mg 1X ONCE PO 10/12/21 17:15 10/12/21 17:16 DC 10/12/21 17:49 Metoprolol Succinate (Toprol Xl) 50 mg DAILY PO 10/12/21 17:30 10/13/21 08:48 Hydralazine HCl (Apresoline) 25 mg BID PO 10/12/21 22:30 10/13/21 08:49 Calcitriol (Rocaltrol) 0.5 mcg QHS PO 10/12/21 22:30 10/12/21 22:52 Heparin Sodium/ Sodium Chloride (HEPARIN for ARTERIAL LINE FLUSH) 1,000 unit 1X ONCE IART 10/13/21 11:30 10/13/21 11:31 DC 10/13/21 11:30 Midazolam HCl (Versed) 2 mg 1X ONCE IV 10/13/21 11:30 10/13/21 11:31 DC 10/13/21 11:07 Fentanyl Citrate (Fentanyl 2ml Vial) 100 mcg 1X ONCE IV 10/13/21 11:30 10/13/21 11:31 DC 10/13/21 11:07 Iodixanol (Visipaque 320) 100 ml 1X ONCE IART 10/13/21 11:30 10/13/21 11:31 DC 10/13/21 11:30 Lidocaine HCl (Lidocaine 2% 20ml Vial) 20 ml 1X ONCE IJ 10/13/21 11:30 10/13/21 11:31 DC 10/13/21 11:30 Justifications for Admission Other Justification TONIO AMARO MD Oct 13, 2021 13:40
[2021-10-13 13:53] LABS: CHOLESTEROL/HDL RATIO 3.9
--- NOTE | 2021-10-13 16:12 | CARD ---
MR#: [id number] Date of Study: 10/13/2021 Ordering Physician: MOHINI MEEKS, Referring Physician: MOHINI MEEKS, Tech: Maureen Bustamante [facility] APPROVED REPORT EXAM: Two-dimensional and M-mode echocardiogram with Doppler and color Doppler. Other Information Quality : Technically LimitedHR: 70bpm Rhythm : NSR INDICATION Congestive Heart Failure RISK FACTORS Hypertension Obesity Hyperlipidemia Diabetes 2D DIMENSIONS RVDd4.4 (2.9-3.5cm)Left Atrium(2D)5.7 (1.6-4.0cm) IVSd1.4 (0.7-1.1cm)Aortic Root(2D)4.3 (2.0-3.7cm) LVDd6.5 (3.9-5.9cm)LVOT Diameter2.9 (1.8-2.4cm) PWd1.6 (0.7-1.1cm)LVDs5.0 (2.5-4.0cm) FS (%) 23.7 %SV100.9 ml LVEF(%)46.3 (>50%) Aortic Valve AoV Peak Erasto.191.1cm/sAoV VTI34.4cm AO Peak GR.14.6mmHgLVOT Peak Erasto.96.9cm/s AO Mean GR.7mmHgAVA (VMAX)3.24cm2 Mitral Valve MV E Gpjgggkv967.3cm/sMV DECEL [id number] MV A Dxdsilxs85.2cm/sE/A Ratio1.6 Pulmonary Valve PV Peak Jybkhumj49.4cm/s Tricuspid Valve TR P. Oybbcpyo735hc/sTR Peak Gr.40mmHg LEFT VENTRICLE The Left Ventricle is mildly dilated. There is mild concentric left ventricular hypertrophy. The syst olic function is severely impaired. EF 20%. The distal 1/3rd of the LV is akinetic. The remainder of the LV is moderately hypokinetic. Transmitral Doppler flow pattern is Grade II-pseudonormal filling d ynamics. RIGHT VENTRICLE The right ventricle is normal size. There is normal right ventricular wall thickness. The right ventr icular systolic function is normal. ATRIA The left atrium is severely dilated. The right atrium is moderately dilated. The interatrial septum i s intact with no evidence for an atrial septal defect or patent foramen ovale as noted on 2-D or Dopp ler imaging. AORTIC VALVE The aortic valve is normal in structure and function. Doppler and Color Flow revealed no significant aortic regurgitation. There is no significant aortic valvular stenosis. MITRAL VALVE The mitral valve is normal in structure and function. There is no evidence of mitral valve prolapse. There is no mitral valve stenosis. Doppler and Color-flow revealed moderate mitral regurgitation. TRICUSPID VALVE The tricuspid valve is normal in structure and function. Doppler and Color Flow revealed trace to mil d tricuspid regurgitation. Estimated PAP 55 mmHg. There is no tricuspid valve stenosis. PULMONIC VALVE Doppler and Color Flow revealed no pulmonic valvular regurgitation. There is no pulmonic valvular jarvis nosis. GREAT VESSELS The aortic root is normal in size. The ascending aorta is normal in size. The IVC is dilated and reynaldo apses <50% with inspiration. PERICARDIAL EFFUSION There is no evidence of significant pericardial effusion. Critical Notification Critical Value: No <Conclusion> The systolic function is severely impaired. EF 20%. The distal 1/3rd of the LV is akinetic. The remainder of the LV is moderately hypokinetic. Doppler and Color-flow revealed moderate mitral regurgitation. Doppler and Color Flow revealed trace to mild tricuspid regurgitation. Estimated PAP 55 mmHg. The IVC is dilated and collapses <50% with inspiration. Signed by : Catarino hKan, Electronically Approved : 10/13/2021 16:11:56
[2021-10-13] MEDS: ATORVASTATIN CALCIUM 20 MG TABLET PO SCH (20:45)
[2021-10-13] MEDS: CALCITRIOL 0.25 MCG CAPSULE. PO SCH (20:49)
[2021-10-14] VITALS (17 sets, daily range): BP systolic 113–174; BP diastolic 55–80
[2021-10-14 05:19] LABS: CREATININE 12.1 mg/dL (0.7-1.3); GFR 4.3; POTASSIUM 5.5 mmol/L (3.5-5.1)
[2021-10-14] MEDS: PANTOPRAZOLE 40 MG TABLET.DR. PO SCH (05:37)
[2021-10-14] MEDS: oxyCODONE/APAP 5/325 1 TAB TABLET PO PRN (06:23)
[2021-10-14] MEDS: ASPIRIN ENTERIC COATED 81 MG TABLET.DR. PO SCH (08:00)
[2021-10-14] MEDS ORDERED: CLOPIDOGREL BISULFATE 75 MG TABLET PO SCH (08:00)
[2021-10-14] MEDS: CALCIUM ACETATE 667 MG CAPSULE PO SCH ×3 (08:00→16:27)
[2021-10-14] MEDS: CINACALCET HCL 30 MG TABLET PO SCH (08:21)
[2021-10-14] MEDS: FUROSEMIDE 20 MG TABLET PO SCH (08:21)
[2021-10-14] MEDS: SENNOSIDES/DOCUSATE 8.6/50MG TABLET. PO SCH ×2 (08:21→20:08)
[2021-10-14] MEDS ORDERED: DIALYSIS PATIENT. MC PRN (08:30)
[2021-10-14] MEDS ORDERED: IV NORMAL SALINE 1000ML BAG 1,000 ML IV PRN ×2 (08:30)
[2021-10-14] MEDS: ONDANSETRON PF 4 MG/2 ML VIAL. IVP PRN (09:40)
--- NOTE | 2021-10-14 09:43 | PDOC ---
MOHINI MEEKS RECTIFIER OPERATOR 10/14/21 0943: CARDIO Progress Notes Date and Time Date of Service 10/14/21 Time of Evaluation 1130 Subjective Subjective: No Chest Pain, No shortness of breath, No Palpitations Comments: NSVT in HD today, then AFIB with RVR. was transferred to ICU Vitals Vitals Vital Signs Date Time Temp Pulse Resp B/P (MAP) Pulse Ox O2 Delivery O2 Flow Rate FiO2 10/14/21 07:00 97.8 73 18 174/80 (111) 94 Nasal Cannula 2.0 97.8 Weight Weight [ ] Input and Output Intake and Output Intake and Output 10/14/21 07:00 Intake Total 780 ml Balance 780 ml Intake Oral 780 ml # Bowel Movements 1 Laboratory Labs Laboratory Tests Test 10/13/21 10:00 10/14/21 04:00 Troponin I High Sensitivity 5393 ng/L (4-75) Triglycerides Level 125 mg/dL (0-150) Cholesterol Level 120 mg/dL (0-200) LDL Cholesterol, Calculated 64 mg/dL (0-100) VLDL Cholesterol, Calculated 25 mg/dL (0-40) Non-HDL Cholesterol Calculated 89 mg/dL (0-129) HDL Cholesterol 31 mg/dL (40-60) Cholesterol/HDL Ratio 3.9 Sodium Level 141 mmol/L (136-145) Potassium Level 5.5 mmol/L (3.5-5.1) Chloride Level 98 mmol/L (98-107) Carbon Dioxide Level 29 mmol/L (21-32) Anion Gap 14 (6-14) Blood Urea Nitrogen 88 mg/dL (8-26) Creatinine 12.1 mg/dL (0.7-1.3) Estimated GFR (Cockcroft-Gault) 4.3 Glucose Level 117 mg/dL (70-99) Calcium Level 10.0 mg/dL (8.5-10.1) Physical Exam HEENT: Neck Supple W Full Motion Chest: Symmetric LUNGS: Clear to Auscultation Heart: RRR Abdomen: Soft N/T Extremities: No Edema Neurology: alert, oriented, follow commands Assessment Assessment 1. CAD; LHC showed severe two vessel CAD with LOW ALTITUDE [employer] DEFENSE GUNNER of the mid LAD. The mid and distal vessel are seen to fill via left to left collaterals. The RCA has heavily calcified proximal to mid 80% stenosis. 2. New onset AFIB with RVR; went back into AFIB with RVR in HD today. Did c onvert back to SR. Probable poor candidate for long-term OAC given chronic anemia. On ASA therapy 3. NSTEMI 4. Acute on chronic systolic CHF; LVEDP 34 mmHg per cath 5. Ischemic cardiomyopathy; echo with severe LV systolic dysfunction with an EF of 20%. The distal 1/3rd of the LV is akinetic. The remainder of the LV is moderately hypokinetic. 6. Anemia of chronic disease 7. LBBB 8. ESRD on HD 9. Arrhythmia; 15-beat NSVT in HD today then converted to AFIB with RVR. Rhythm strips not available Recommendations Start amiodarone for rhythm maintenance Continue Toprol for rate control Secondary prevention; increase Lipitor to 40mg HF optimization; continue Toprol, hydralazine, Imdur. Unable to start VALERIE/ARB with hyperkalemia No a candidate for bypass sugery R/b/a of high-risk PCI with Impella support discussed with patient and he is agreeable to proceed. Patient also discussed with Am labs NPO p MN Will proceed with in am Justicifation of Admission Dx: Justifications for Admission: Justification of Admission Dx: Yes Comments: Acute on chronic systolic CHF CAD Severe ischemic cardiomyopathy ABHIJIT GRUBBS MD 10/14/21 1315: CARDIO Progress Notes Assessment Assessment Patient seen and examined The patient has been moved to the ICU secondary to nonsustained VT during dialysis. We discussed results of his catheterization yesterday. We also discussed treatment alternatives. The risks and benefits of PCI the right coronary artery were explained and discussed in detail. The patient would like to proceed to . He was also able to talk to his on the telephone yesterday. I agree with our nurse practitioners assessment and plan. CAD; [facility] showed severe two vessel CAD with LOW ALTITUDE AIR DEFENSE GUNNER of the mid LAD. The mid and distal vessel are seen to fill via left to left collaterals. The RCA has heavily calcified proximal to mid 80% stenosis. New onset AFIB with RVR; went back into AFIB with RVR in HD today. Did convert back to SR. Probable poor candidate for long-term OAC given chronic anemia. On ASA therapy NSTEMI Acute on chronic systolic CHF; LVEDP 34 mmHg per cath Ischemic cardiomyopathy; echo with severe LV systolic dysfunction with an EF of 20%. The distal 1/3rd of the LV is akinetic. The remainder of the LV is moderately hypokinetic. Anemia of chronic disease LBBB ESRD on HD Arrhythmia; 15-beat NSVT in HD today then converted to AFIB with RVR. MOHINI MEEKS APRN Oct 14, 2021 09:43 ABHIJIT GRUBBS MD Oct 14, 2021 13:15
--- NOTE | 2021-10-14 10:36 | NUR ---
REC'D CALL FROM [facility]. PT HAD 15 BEAT RUN OF VTACH, ET DR LOYA ORDERED DIALYSIS STOPPED AT THE MOMENT ANT PT TRANSFER TO ICU. ALL BELONGINGS GATHERED ET PT ESCORTED FROM HD SUITE TO ROOM 111. REPORT GIVEN TO TONE HORNER AT BEDSIDE.
[2021-10-14] MEDS ORDERED: NITROGLYCERIN SUBLINGUAL 0.4 MG BOTTLE OF 25. SL PRN (11:00)
[2021-10-14] MEDS: ISOSORBIDE MONONITRATE ER 30 MG TAB.ER.24H PO SCH (11:34)
[2021-10-14] MEDS ORDERED: AMIODARONE 150 MG in IV DEXTROSE 5% 100ML 100 ML IV ONE (12:15)
--- NOTE | 2021-10-14 12:33 | PDOC ---
DATE OF SERVICE DATE: 10/14/21 TIME: 12:29 SUBJECTIVE ROS Seen on dialysis , c/o nausea . Re-evaluated again - short run of Vta followed by Afib, Dialysis stopped , transferred to ICU S/P C on 10/13 OBJECTIVE Vital Signs Vital Signs Date Time Temp Pulse Resp B/P (MAP) Pulse Ox O2 Delivery O2 Flow Rate FiO2 10/14/21 11:34 72 118/70 10/14/21 08:00 Nasal Cannula 2.0 10/14/21 07:00 97.8 18 94 97.8 I & 0 Intake and Output 10/14/21 07:00 Intake Total 780 ml Balance 780 ml Intake Oral 780 ml # Bowel Movements 1 PHYSICAL EXAM Physical Exam GEN: NAD, HEENT: OM moist NECK: Supple. LUNGS: diminished breath sounds at the right base, Non labored CARDIOVASCULAR: RRR ABDOMEN: Soft, NT EXTREMITIES: no pitting edema, AV access Lt NEURO- Grossly normal Skin No rash -No Can DIAGNOSIS/ASSESSMENT Assessment & Plan [facility]D- [facility] ,Seen on dialysis , c/o nausea Re- evaluated again run of [facility] followed by Afib, Dialysis stopped , transferred to ICU Chest pain, palpitations; S/P C on 10/13/21- Severe [place] two-vessel coronary artery disease. Card recommendations New onset AFIB with RVR; rate now controlled. Chronic diastolic CHF appeaars compensated H/o cardiomyopathy; most recent echo 08/2018 [facility] LVEF 50% LBBB Anemia- - Hgb stable . EGD in 2018 nonbleeding gastric ulcers by esophagogastroduodenoscopy and erosive gastritis COMMENT/RELEVANT DATA Meds Current Medications Medications (Trade) Dose Ordered Sig/Guillermo Start Time Stop Time Status Last Admin Dose Admin Acetaminophen (Tylenol) 650 mg PRN Q6HRS PRN 10/12/21 16:45 Amiodarone HCl 150 mg/Dextrose 103 ml @ 600 mls/hr 1X ONCE 10/14/21 12:15 10/14/21 12:25 DC Amiodarone HCl 450 mg/Dextrose 259 ml @ 0 mls/hr CONT PRN 10/14/21 12:15 10/15/21 12:14 Amlodipine Besylate (Norvasc) 10 mg BID 10/12/21 21:00 10/12/21 17:13 DC Aspirin (Aspirin Chewable) 324 mg 1X ONCE 10/12/21 17:15 10/12/21 17:16 DC 10/12/21 17:49 324 MG Aspirin (Ecotrin) 81 mg DAILYWBKFT 10/13/21 08:00 10/14/21 08:00 81 MG Atorvastatin Calcium (Lipitor) 20 mg HS 10/12/21 21:00 10/13/21 20:45 20 MG Calcitriol (Rocaltrol) 0.5 mcg QHS 10/12/21 22:30 10/13/21 20:49 0.5 MCG Calcium Acetate (Phoslo) 667 mg TIDWMEALS 10/12/21 17:00 10/14/21 08:00 667 MG Calcium Carbonate/ Glycine (Tums) 500 mg PRN Q3HRS PRN 10/12/21 16:45 Carvedilol (Coreg) 25 mg BIDWMEALS 10/12/21 17:00 10/12/21 17:08 DC Cinacalcet (Sensipar) 60 mg DAILY 10/13/21 09:00 10/14/21 08:21 60 MG Clopidogrel Bisulfate (Plavix) 300 mg 1X ONCE 10/13/21 19:00 10/13/21 19:01 DC 10/13/21 19:21 300 MG Diltiazem HCl (Cardizem Iv Push) 10 mg 1X ONCE 10/12/21 15:15 10/12/21 15:16 DC 10/12/21 15:26 10 MG Diltiazem HCl 125 mg/Dextrose 125 ml @ 10 mls/hr 1X ONCE 10/12/21 15:15 10/13/21 03:44 DC 10/12/21 15:32 10 MLS/HR Diltiazem HCl 125 mg/Sodium Chloride 125 ml @ 10 mls/hr 1X ONCE 10/12/21 15:15 10/12/21 15:14 DC Fentanyl Citrate (Fentanyl 2ml Vial) 100 mcg 1X ONCE 10/13/21 11:30 10/13/21 11:31 DC 10/13/21 11:07 50 MCG Furosemide (Lasix) 20 mg DAILY 10/13/21 09:00 10/14/21 08:21 20 MG Heparin Sodium (Porcine) (Heparin Sodium) 2,200 unit PRN Q6HRS PRN 10/12/21 16:30 10/13/21 13:08 DC 10/13/21 03:00 2,200 UNIT Heparin Sodium/ Dextrose 250 ml @ 10.632 mls/ hr CONT PRN 10/12/21 16:30 10/13/21 13:08 DC 10/13/21 03:01 10.632 MLS/HR Heparin Sodium/ Sodium Chloride (HEPARIN for ARTERIAL LINE FLUSH) 1,000 unit 1X ONCE 10/13/21 11:30 10/13/21 11:31 DC 10/13/21 11:30 1,000 UNIT Hydralazine HCl (Apresoline) 25 mg BID 10/12/21 22:30 10/13/21 20:51 25 MG Info (Non-Icu Electrolyte Protocol) 1 ea PRN DAILY PRN 10/12/21 16:45 Info (PHARMACY MONITORING -- do not chart) 1 each PRN DAILY PRN 10/14/21 08:30 Iodixanol (Visipaque 320) 100 ml 1X ONCE 10/13/21 11:30 10/13/21 11:31 DC 10/13/21 11:30 66 ML Isosorbide Mononitrate (Imdur) 30 mg DAILY 10/13/21 09:00 10/14/21 11:34 30 MG Lidocaine HCl (Lidocaine 1% 20ml Vial) 20 ml STK-MED ONCE 10/13/21 10:31 10/13/21 10:31 DC Lidocaine HCl (Lidocaine 2% 20ml Vial) 20 ml 1X ONCE 10/13/21 11:30 10/13/21 11:31 DC 10/13/21 11:30 10 ML Metoprolol Succinate (Toprol Xl) 50 mg DAILY 10/12/21 17:30 10/13/21 08:48 50 MG Midazolam HCl (Versed) 2 mg 1X ONCE 10/13/21 11:30 10/13/21 11:31 DC 10/13/21 11:07 2 MG Nitroglycerin (Nitrostat) 0.4 mg PRN Q5MIN PRN 10/14/21 11:00 Non-Formulary Medication (Ferric Citrate ) 2 tab TID 10/13/21 09:00 UNV Ondansetron HCl (Zofran) 4 mg PRN Q6HRS PRN 10/12/21 16:45 10/14/21 09:40 4 MG Oxycodone/ Acetaminophen (Percocet 5/325) 2 tab PRN Q4HRS PRN 10/12/21 16:45 10/14/21 06:23 2 TAB Pantoprazole Sodium (Protonix) 40 mg DAILYAC 10/13/21 07:30 10/14/21 05:37 40 MG Perflutren Protein Type A Microsphe (Optison) 0.66 mg STK-MED ONCE 10/13/21 07:29 10/13/21 07:29 DC Senna/Docusate Sodium (Senna Plus) 1 tab BID 10/12/21 21:00 10/14/21 08:21 1 TAB Sodium Chloride 1,000 ml @ 400 mls/hr Q2H30M PRN 10/14/21 08:30 10/14/21 20:29 Zolpidem Tartrate (Ambien) 5 mg PRN QHS PRN 10/12/21 16:45 Lab Laboratory Tests Test 10/14/21 04:00 Sodium Level 141 mmol/L (136-145) Potassium Level 5.5 mmol/L (3.5-5.1) Chloride Level 98 mmol/L (98-107) Carbon Dioxide Level 29 mmol/L (21-32) Anion Gap 14 (6-14) Blood Urea Nitrogen 88 mg/dL (8-26) Creatinine 12.1 mg/dL (0.7-1.3) Estimated GFR (Cockcroft-Gault) 4.3 Glucose Level 117 mg/dL (70-99) Calcium Level 10.0 mg/dL (8.5-10.1) Hepatitis B Surface Antigen Nonreactive (Nonreactive) Results All relevant outside records, renal labs, imaging studies, telemetry/EKG's were reviewed. Justicifation of Admission Dx: Justifications for Admission: Justification of Admission Dx: N/A MATT LOYA MD Oct 14, 2021 12:33
[2021-10-14] MEDS: METOPROLOL SUCC 24HR ER 50 MG TAB.ER.24H. PO SCH (12:44)
[2021-10-14] MEDS: hydrALAZINE 25 MG TABLET PO SCH ×2 (12:45→20:07)
[2021-10-14 13:01] LABS: BASO # 0.1 x10^3/uL (0.0-0.2); BASO % 2 % (0-3); EOS # 0.2 x10^3/uL (0.0-0.7); EOS % 3 % (0-3); HEMATOCRIT 22.8 % (39.0-53.0); LYMPH # 0.6 x10^3/uL (1.0-4.8); LYMPH % 9 % (24-48); MEAN CORPUSCULAR HEMOGLOBIN 29 pg (25-35); MEAN CORPUSCULAR HGB CONC 30 g/dL (31-37); MEAN CORPUSCULAR VOLUME 98 fL (79-100); MONO # 0.5 x10^3/uL (0.0-1.1); MONO % 8 % (0-9); NEUT % 78 % (31-73); PLATELET COUNT 187 x10^3/uL (140-400); RED BLOOD COUNT 2.32 x10^6/uL (4.30-5.70); RED CELL DISTRIBUTION WIDTH 24.8 % (11.5-14.5); WHITE BLOOD COUNT 6.4 x10^3/uL (4.0-11.0)
[2021-10-14 13:03] LABS: HEMOGLOBIN 6.8 g/dL (13.0-17.5)
--- NOTE | 2021-10-14 15:28 | PDOC ---
[employer] PROGRESS NOTE Date of Service DOS: DATE: 10/14/21 TIME: 15:26 Chief Complaint Chief Complaint Unstable angina - CAD on [facility] 10/13/2021, needs referral for CABG vs high risk PCI New onset AFIB with RVR; rate now controlled. Anemia of chronic disease - Hb 6.8 on 10/14/21, s/p 1u prbc Acute on chronic diastolic CHF - due to above H/o cardiomyopathy; most recent echo 08/2018 wtih LVEF 50%, now EF 20% with left ventricular wall motion abnormalities LBBB ESRD on HD - MWF History of Present Illness History of Present Illness Mr Norman is a 61-year-old residential inmate w/ PMHx ESRD on HD on MWF who presented to the emergency room 10/12 with c/o chest pain. Patient has a history of ESRD and was getting dialysis when he felt he described as a lot of pressure on his chest along with fluttering. Reports never having a feeling like this before. He states he thinks that they pulled more fluid leading to his symptoms Is on blood pressure medication through his residential. Does report the chest pressure was going up into his neck as well. Patient noted to be in A. fib with RVR in the emergency room. Started on Cardizem drip. Currently denies any CP or SOB, states I dont have any fluid on me. Denies N/V/D. No F/C, No abdominal pain 10/13: To cardiac catheterization today with severe CAD no interventions given need discussion for referral for CABG consideration versus complex PCI. He has requested to discuss with his and cardiology plans to do so as well. 10/14: Echocardiogram showed EF of 20% with left ventricular wall motion abnormalities. Will likely need high risk PCI to RCA and temporary ventricular assistance post catheterization. Went into rapid atrial fibrillation initially appeared to be ventricular tachycardia was transferred to ICU for closer monitoring converted to sinus spontaneously. He had some shortness of breath and panic with palpitations at the time and seen after this episode in ICU is feeling more comfortable restarted on dialysis. Hb 6.8 transfused 1 unit PRBC with dialysis. Will be n.p.o. after midnight. CC time 42 minutes Vitals/I&O Vitals/I&O: Vital Signs Date Time Temp Pulse Resp B/P (MAP) Pulse Ox O2 Delivery O2 Flow Rate FiO2 10/14/21 15:04 97.6 65 20 118/78 97.6 10/14/21 14:00 97 Nasal Cannula 2.0 I & O 10/13/21 10/13/21 10/14/21 15:00 23:00 07:00 Intake Total 0 ml 680 ml 100 ml Balance 0 ml 680 ml 100 ml Physical Exam General: Alert, Oriented X3, Cooperative, No acute distress Heart: Other (AFIB ) Lungs: Clear Abdomen: Soft Extremities: No edema Skin: No significant lesion Labs Labs: Laboratory Tests Test 10/14/21 04:00 White Blood Count 6.4 x10^3/uL (4.0-11.0) Red Blood Count 2.32 x10^6/uL (4.30-5.70) Hemoglobin 6.8 g/dL (13.0-17.5) Hematocrit 22.8 % (39.0-53.0) Mean Corpuscular Volume 98 fL (79-100) Mean Corpuscular Hemoglobin 29 pg (25-35) Mean Corpuscular Hemoglobin Concent 30 g/dL (31-37) Red Cell Distribution Width 24.8 % (11.5-14.5) Platelet Count 187 x10^3/uL (140-400) Neutrophils (%) (Auto) 78 % (31-73) Lymphocytes (%) (Auto) 9 % (24-48) Monocytes (%) (Auto) 8 % (0-9) Eosinophils (%) (Auto) 3 % (0-3) Basophils (%) (Auto) 2 % (0-3) Neutrophils # (Auto) 5.0 x10^3/uL (1.8-7.7) Lymphocytes # (Auto) 0.6 x10^3/uL (1.0-4.8) Monocytes # (Auto) 0.5 x10^3/uL (0.0-1.1) Eosinophils # (Auto) 0.2 x10^3/uL (0.0-0.7) Basophils # (Auto) 0.1 x10^3/uL (0.0-0.2) Sodium Level 141 mmol/L (136-145) Potassium Level 5.5 mmol/L (3.5-5.1) Chloride Level 98 mmol/L (98-107) Carbon Dioxide Level 29 mmol/L (21-32) Anion Gap 14 (6-14) Blood Urea Nitrogen 88 mg/dL (8-26) Creatinine 12.1 mg/dL (0.7-1.3) Estimated GFR (Cockcroft-Gault) 4.3 Glucose Level 117 mg/dL (70-99) Calcium Level 10.0 mg/dL (8.5-10.1) Hepatitis B Surface Antigen Nonreactive (Nonreactive) Assessment and Plan Assessmemt and Plan Problems Medical Problems: (1) NSTEMI (non-ST elevated myocardial infarction) Status: Acute Comment Review of Relevant I have reviewed the following items zaina (where applicable) has been applied. Medications: Current Medications Medications (Trade) Dose Ordered Sig/Guillermo Route PRN Reason Start Time Stop Time Status Last Admin Dose Admin Clopidogrel Bisulfate (Plavix) 75 mg DAILYWBKFT PO 10/14/21 08:00 10/14/21 08:00 Clopidogrel Bisulfate (Plavix) 300 mg 1X ONCE PO 10/13/21 19:00 10/13/21 19:01 DC 10/13/21 19:21 Amiodarone HCl 150 mg/Dextrose 103 ml @ 600 mls/hr 1X ONCE IV 10/14/21 12:15 10/14/21 12:25 DC 10/14/21 12:45 Justifications for Admission Other Justification TONIO AMARO MD Oct 14, 2021 15:28
--- NOTE | 2021-10-14 17:30 | NUR ---
Pt admitted to unit around 1100. Pt was in A-Fib RVR with rate in the upper 120s. About 20 minutes after coming to ICU, pt went back into sinus rhythm by himself. Amiodarone loading dose started at 1245. 24 hour infusion started around 1300, however, medication did not scan and it was later scanned at 1738. Will continue to monitor.
[2021-10-14] MEDS: AMIODARONE 450 MG in IV DEXTROSE 5% 250 ML IV PRN ×2 (17:38→22:32)
[2021-10-14] MEDS: ATORVASTATIN CALCIUM 40 MG TABLET. PO SCH (20:07)
[2021-10-14] MEDS: CALCITRIOL 0.25 MCG CAPSULE. PO SCH (20:08)
--- NOTE | 2021-10-14 20:09 | NUR ---
Pt declined his evening dose of calcitrol. Patient stated they discontinued that medication for him last week d/t high calcium levels. Calcium 10.0 this morning.
[2021-10-15] VITALS (42 sets, daily range): BP systolic 103–164; BP diastolic 38–109
[2021-10-15 05:08] LABS: HEMATOCRIT 23.3 % (39.0-53.0); HEMOGLOBIN 7.2 g/dL (13.0-17.5); RED BLOOD COUNT 2.46 x10^6/uL (4.30-5.70); RED CELL DISTRIBUTION WIDTH 24.2 % (11.5-14.5); WHITE BLOOD COUNT 7.1 x10^3/uL (4.0-11.0)
[2021-10-15 05:49] LABS: CALCIUM 9.4 mg/dL (8.5-10.1); CREATININE 6.6 mg/dL (0.7-1.3); GFR 8.6; POTASSIUM 5.3 mmol/L (3.5-5.1)
[2021-10-15] MEDS ORDERED: LIDOCAINE 1% Multi-Dose 20 ML VIAL. ONE (07:32)
[2021-10-15] MEDS ORDERED: HEPARIN for ARTERIAL LINE 1,500 ML ONE (07:33)
[2021-10-15] MEDS ORDERED: IODIXANOL 320 MG/ML 100 ML VIAL. ONE ×2 (07:33→09:59)
[2021-10-15] MEDS ORDERED: fentaNYL PF VIAL 100 MCG/2 ML VIAL ONE ×2 (07:57→10:46)
[2021-10-15] MEDS ORDERED: MIDAZOLAM HCL/PF 2 MG/2 ML VIAL. ONE ×2 (07:57→09:38)
[2021-10-15] MEDS: ASPIRIN ENTERIC COATED 81 MG TABLET.DR. PO SCH (08:00)
[2021-10-15] MEDS: CALCIUM ACETATE 667 MG CAPSULE PO SCH ×4 (08:00→16:36)
[2021-10-15] MEDS ORDERED: ONDANSETRON PF 4 MG/2 ML VIAL. ONE (08:07)
[2021-10-15] MEDS ORDERED: HEPARIN for IV BOLUS 10,000 UNIT/10 ML VIAL. ONE ×2 (08:11→09:33)
--- NOTE | 2021-10-15 08:14 | PDOC ---
MODERATE SEDATION ASSESSMENT RISKS/ALTERNATIVES Risks/Alternatives Risks and alternatives of this type of sedation and procedure discussed with: RISK/ALTERNATIVES: Patient H & P ON CHART H & P H & P on chart and reviewed for co-morbid conditions and appropriate labs. H&P ON CHART: Yes STATUS PREG STATUS ASSESSED: N/A MEDS/ALLERGIES REVIEWED Meds/Allergies Reviewed Medications and Allergies including time and route of recently administered narcotics and sedatives. MEDS/ALLERGIES REVIEWED: Yes ASA RATING ASA RATING: III AIRWAY ASSESSMENT Airway Assessment Airway patency, oral function limitations, presence of caps, crowns, dentures, partials, and ability to extend neck assessed. AIRWAY ASSESSMENT: Yes MALLAMPATI SCORE MALLAMPATI SCORE: II PRE-SEDATION ASSESSMENT PRE-SEDATION ASSESSMENT: Yes (risks and benefits discussed with patient and his . ) MELISSA XIONG MD Oct 15, 2021 08:14
[2021-10-15] MEDS: SENNOSIDES/DOCUSATE 8.6/50MG TABLET. PO SCH ×2 (09:00→21:27)
--- NOTE | 2021-10-15 09:02 | PDOC ---
DATE OF SERVICE DATE: 10/15/21 TIME: 09:01 SUBJECTIVE ROS Cath with Plan for PCI today OBJECTIVE Vital Signs Vital Signs Date Time Temp Pulse Resp B/P (MAP) Pulse Ox O2 Delivery O2 Flow Rate FiO2 10/15/21 07:00 61 14 134/59 (84) 96 Nasal Cannula 2.0 10/15/21 04:00 98.5 98.5 I & 0 Intake and Output 10/15/21 07:00 Intake Total 1645 ml Balance 1645 ml Intake Oral 920 ml IV Total 374 ml Blood Product IV Normal Saline Flush 351 ml PHYSICAL EXAM Physical Exam GEN: NAD, HEENT: OM moist NECK: Supple. LUNGS: diminished breath sounds at the right base, Non labored CARDIOVASCULAR: RRR ABDOMEN: Soft, NT EXTREMITIES: no pitting edema, AV access Lt NEURO- Grossly normal Skin No rash -No Can DIAGNOSIS/ASSESSMENT Assessment & Plan ESRD- [facility] , No indication for dialysis currently Chest pain, palpitations; S/P LHC on 10/13/21- Severe yocha dehe two-vessel coronary artery disease. Not a candidate for CABG manager laboratory today for PCI New onset AFIB with RVR; rate now controlled. Chronic diastolic CHF appeaars compensated H/o cardiomyopathy; most recent echo 08/2018 wt LVEF 50% LBBB Anemia- - Hgb stable . EGD in 2018 nonbleeding gastric ulcers by esophagogastroduodenoscopy and erosive gastritis COMMENT/RELEVANT DATA Meds Current Medications Medications (Trade) Dose Ordered Sig/Guillermo Start Time Stop Time Status Last Admin Dose Admin Acetaminophen (Tylenol) 650 mg PRN Q6HRS PRN 10/12/21 16:45 Amiodarone HCl 150 mg/Dextrose 103 ml @ 600 mls/hr 1X ONCE 10/14/21 12:15 10/14/21 12:25 DC 10/14/21 12:45 600 MLS/HR Amiodarone HCl 450 mg/Dextrose 259 ml @ 0 mls/hr CONT PRN 10/14/21 12:15 10/15/21 12:14 10/14/21 22:32 16.7 MLS/HR Amlodipine Besylate (Norvasc) 10 mg BID 10/12/21 21:00 10/12/21 17:13 DC Aspirin (Aspirin Chewable) 324 mg 1X ONCE 10/12/21 17:15 10/12/21 17:16 DC 10/12/21 17:49 324 MG Aspirin (Ecotrin) 81 mg DAILYWBKFT 10/13/21 08:00 10/14/21 08:00 81 MG Atorvastatin Calcium (Lipitor) 40 mg HS 10/14/21 21:00 10/14/21 20:07 40 MG Calcitriol (Rocaltrol) 0.5 mcg QHS 10/12/21 22:30 10/13/21 20:49 0.5 MCG Calcium Acetate (Phoslo) 667 mg TIDWMEALS 10/12/21 17:00 10/14/21 16:27 667 MG Calcium Carbonate/ Glycine (Tums) 500 mg PRN Q3HRS PRN 10/12/21 16:45 Carvedilol (Coreg) 25 mg BIDWMEALS 10/12/21 17:00 10/12/21 17:08 DC Cinacalcet (Sensipar) 60 mg DAILY 10/13/21 09:00 10/14/21 08:21 60 MG Clopidogrel Bisulfate (Plavix) 300 mg 1X ONCE 10/13/21 19:00 10/13/21 19:01 DC 10/13/21 19:21 300 MG Diltiazem HCl (Cardizem Iv Push) 10 mg 1X ONCE 10/12/21 15:15 10/12/21 15:16 DC 10/12/21 15:26 10 MG Diltiazem HCl 125 mg/Dextrose 125 ml @ 10 mls/hr 1X ONCE 10/12/21 15:15 10/13/21 03:44 DC 10/12/21 15:32 10 MLS/HR Diltiazem HCl 125 mg/Sodium Chloride 125 ml @ 10 mls/hr 1X ONCE 10/12/21 15:15 10/12/21 15:14 DC Fentanyl Citrate (Fentanyl 2ml Vial) 100 mcg STK-MED ONCE 10/15/21 07:57 10/15/21 07:57 DC Furosemide (Lasix) 20 mg DAILY 10/13/21 09:00 10/14/21 08:21 20 MG Heparin Sodium (Porcine) (Heparin Sodium) 10,000 unit STK-MED ONCE 10/15/21 08:11 10/15/21 08:12 DC Heparin Sodium/ Dextrose 250 ml @ 10.632 mls/ hr CONT PRN 10/12/21 16:30 10/13/21 13:08 DC 10/13/21 03:01 10.632 MLS/HR Heparin Sodium/ Sodium Chloride 1,500 ml @ As Directed STK-MED ONCE 10/15/21 07:33 10/15/21 07:33 DC Heparin Sodium/ Sodium Chloride (HEPARIN for ARTERIAL LINE FLUSH) 1,000 unit 1X ONCE 10/13/21 11:30 10/13/21 11:31 DC 10/13/21 11:30 1,000 UNIT Hydralazine HCl (Apresoline) 25 mg BID 10/12/21 22:30 10/14/21 20:07 25 MG Info (Non-Icu Electrolyte Protocol) 1 ea PRN DAILY PRN 10/12/21 16:45 Info (PHARMACY MONITORING -- do not chart) 1 each PRN DAILY PRN 10/14/21 08:30 Iodixanol (Visipaque 320) 100 ml STK-MED ONCE 10/15/21 07:33 10/15/21 07:33 DC Isosorbide Mononitrate (Imdur) 30 mg DAILY 10/13/21 09:00 10/14/21 11:34 30 MG Lidocaine HCl (Lidocaine 1% 20ml Vial) 20 ml STK-MED ONCE 10/15/21 07:32 10/15/21 07:33 DC Lidocaine HCl (Lidocaine 2% 20ml Vial) 20 ml 1X ONCE 10/13/21 11:30 10/13/21 11:31 DC 10/13/21 11:30 10 ML Metoprolol Succinate (Toprol Xl) 50 mg DAILY 10/12/21 17:30 10/14/21 12:44 50 MG Midazolam HCl (Versed) 2 mg STK-MED ONCE 10/15/21 07:57 10/15/21 07:57 DC Nitroglycerin (Nitrostat) 0.4 mg PRN Q5MIN PRN 10/14/21 11:00 Non-Formulary Medication (Ferric Citrate ) 2 tab TID 10/13/21 09:00 UNV Ondansetron HCl (Zofran) 4 mg STK-MED ONCE 10/15/21 08:07 10/15/21 08:07 DC Oxycodone/ Acetaminophen (Percocet 5/325) 2 tab PRN Q4HRS PRN 10/12/21 16:45 10/14/21 06:23 2 TAB Pantoprazole Sodium (Protonix) 40 mg DAILYAC 10/13/21 07:30 10/14/21 05:37 40 MG Perflutren Protein Type A Microsphe (Optison) 0.66 mg STK-MED ONCE 10/13/21 07:29 10/13/21 07:29 DC Senna/Docusate Sodium (Senna Plus) 1 tab BID 10/12/21 21:00 10/14/21 20:08 1 TAB Sodium Chloride 1,000 ml @ 400 mls/hr Q2H30M PRN 10/14/21 08:30 10/14/21 20:29 DC Zolpidem Tartrate (Ambien) 5 mg PRN QHS PRN 10/12/21 16:45 Lab Laboratory Tests Test 10/14/21 15:40 10/15/21 04:50 Hepatitis B Surface Antibody Reactive White Blood Count 7.1 x10^3/uL (4.0-11.0) Red Blood Count 2.46 x10^6/uL (4.30-5.70) Hemoglobin 7.2 g/dL (13.0-17.5) Hematocrit 23.3 % (39.0-53.0) Mean Corpuscular Volume 95 fL (79-100) Mean Corpuscular Hemoglobin 29 pg (25-35) Mean Corpuscular Hemoglobin Concent 31 g/dL (31-37) Red Cell Distribution Width 24.2 % (11.5-14.5) Platelet Count 169 x10^3/uL (140-400) Sodium Level 140 mmol/L (136-145) Potassium Level 5.3 mmol/L (3.5-5.1) Chloride Level 100 mmol/L (98-107) Carbon Dioxide Level 29 mmol/L (21-32) Anion Gap 11 (6-14) Blood Urea Nitrogen 41 mg/dL (8-26) Creatinine 6.6 mg/dL (0.7-1.3) Estimated GFR (Cockcroft-Gault) 8.6 Glucose Level 84 mg/dL (70-99) Calcium Level 9.4 mg/dL (8.5-10.1) Results All relevant outside records, renal labs, imaging studies, telemetry/EKG's were reviewed. Justicifation of Admission Dx: Justifications for Admission: Justification of Admission Dx: Yes MATT LOYA MD Oct 15, 2021 09:02
[2021-10-15] MEDS ORDERED: PHENYLEPHRINE in 0.9% NACL PF 1 MG/10 ML SYRINGE. IV ONE (09:16)
[2021-10-15] MEDS ORDERED: NITROGLYCERIN 200 MCG/2 ML SYRINGE FOR CATH/VASC LAB. ONE (10:26)
[2021-10-15] MEDS ORDERED: IV DEXTROSE 5% 500 ML IV ONE (10:30)
[2021-10-15] MEDS ORDERED: MIDAZOLAM HCL/PF 2 MG/2 ML VIAL. IV ONE (10:30)
[2021-10-15] MEDS ORDERED: fentaNYL PF VIAL 100 MCG/2 ML VIAL IV ONE (10:30)
[2021-10-15] MEDS ORDERED: LIDOCAINE 1% Multi-Dose 20 ML VIAL. INJ ONE (10:30)
[2021-10-15] MEDS ORDERED: ONDANSETRON PF 4 MG/2 ML VIAL. IVP ONE (10:30)
[2021-10-15] MEDS ORDERED: HEPARIN for IV BOLUS 10,000 UNIT/10 ML VIAL. IV ONE ×2 (10:30→11:15)
[2021-10-15] MEDS ORDERED: IODIXANOL 320 MG/ML 100 ML VIAL. IART ONE (10:30)
[2021-10-15] MEDS ORDERED: NITROGLYCERIN 200 MCG/2 ML SYRINGE FOR CATH/VASC LAB. IART ONE (10:30)
[2021-10-15] MEDS ORDERED: ASPIRIN 325 MG TABLET ONE (11:12)
[2021-10-15] MEDS ORDERED: PRASUGREL 10 MG TABLET. ONE (11:12)
[2021-10-15] MEDS ORDERED: PRASUGREL 10 MG TABLET. PO ONE (11:15)
[2021-10-15] MEDS ORDERED: ASPIRIN 325 MG TABLET PO ONE (11:15)
[2021-10-15 14:10] LABS: BASO # 0.1 x10^3/uL (0.0-0.2); BASO % 1 % (0-3); EOS # 0.2 x10^3/uL (0.0-0.7); EOS % 3 % (0-3); HEMATOCRIT 26.9 % (39.0-53.0); HEMOGLOBIN 8.6 g/dL (13.0-17.5); LYMPH # 0.6 x10^3/uL (1.0-4.8); LYMPH % 8 % (24-48); MEAN CORPUSCULAR HEMOGLOBIN 30 pg (25-35); MEAN CORPUSCULAR HGB CONC 32 g/dL (31-37); MEAN CORPUSCULAR VOLUME 93 fL (79-100); MONO # 0.6 x10^3/uL (0.0-1.1); MONO % 8 % (0-9); NEUT # 5.8 x10^3/uL (1.8-7.7); NEUT % 80 % (31-73); PLATELET COUNT 163 x10^3/uL (140-400); RED BLOOD COUNT 2.88 x10^6/uL (4.30-5.70); RED CELL DISTRIBUTION WIDTH 22.1 % (11.5-14.5); WHITE BLOOD COUNT 7.3 x10^3/uL (4.0-11.0)
[2021-10-15] MEDS: PANTOPRAZOLE 40 MG TABLET.DR. PO SCH (14:34)
[2021-10-15] MEDS: CINACALCET HCL 30 MG TABLET PO SCH (14:34)
[2021-10-15 14:51] LABS: ANISOCYTOSIS MOD; PLT ESTIMATE ADEQUATE (ADEQUATE)
[2021-10-15] MEDS: ISOSORBIDE MONONITRATE ER 30 MG TAB.ER.24H PO SCH (16:05)
--- NOTE | 2021-10-15 16:08 | PDOC ---
[employer] PROGRESS NOTE Date of Service DOS: DATE: 10/15/21 TIME: 16:04 Chief Complaint Chief Complaint Unstable angina - CAD on [facility] 10/13/2021, needs referral for CABG vs high risk PCI New onset AFIB with RVR; rate now controlled. Anemia of chronic disease - Hb 6.8 on 10/14/21, s/p 1u prbc Acute on chronic diastolic CHF - due to above H/o cardiomyopathy; most recent echo 08/2018 wt LVEF 50%, now EF 20% with left ventricular wall motion abnormalities LBBB ESRD on HD - MWF History of Present Illness History of Present Illness Mr Norman is a 61-year-old [facility] inmate w/ PMHx ESRD on HD on MWF who presented to the emergency room 10/12 with c/o chest pain. Patient has a history of ESRD and was getting dialysis when he felt he described as a lot of pressure on his chest along with fluttering. Reports never having a feeling like this before. He states he thinks that they pulled more fluid leading to his symptoms Is on blood pressure medication through his [facility]. Does report the chest pressure was going up into his neck as well. Patient noted to be in A. fib with RVR in the emergency room. Started on Cardizem drip. Currently denies any CP or SOB, states I dont have any fluid on me. Denies N/V/D. No F/C, No abdominal pain 10/13: To cardiac catheterization today with severe CAD no interventions given need discussion for referral for CABG consideration versus complex PCI. He has requested to discuss with his and cardiology plans to do so as well. 10/14: Echocardiogram showed EF of 20% with left ventricular wall motion abnormalities. Will likely need high risk PCI to RCA and temporary ventricular assistance post catheterization. Went into rapid atrial fibrillation initially appeared to be ventricular tachycardia was transferred to ICU for closer monitoring converted to sinus spontaneously. He had some shortness of breath and panic with palpitations at the time and seen after this episode in ICU is feeling more comfortable restarted on dialysis. Hb 6.8 transfused 1 unit PRBC with dialysis. Will be n.p.o. after midnight. CC time 42 minutes 10/15: Afebrile. Denies chest pain. Per RN report, patient had PCI with 2 stents placed to RCA, 1 unit of blood during procedure, and 1 unit upon return to ICU. Some questions about we he would d/c from the hospital. Vitals/I&O Vitals/I&O: Vital Signs Date Time Temp Pulse Resp B/P (MAP) Pulse Ox O2 Delivery O2 Flow Rate FiO2 10/15/21 14:20 97.8 60 17 118/58 97.8 10/15/21 12:00 Nasal Cannula 2.0 10/15/21 11:19 99 I & O 10/14/21 10/14/21 10/15/21 15:00 23:00 07:00 Intake Total 501 ml 860 ml 284 ml Balance 501 ml 860 ml 284 ml Physical Exam General: Alert, Oriented X3, Cooperative, No acute distress Heart: Other (AFIB ) Lungs: Clear Abdomen: Soft Extremities: No edema Skin: No significant lesion Labs Labs: Laboratory Tests Test 10/15/21 04:50 10/15/21 09:08 10/15/21 09:24 10/15/21 09:51 White Blood Count 7.1 x10^3/uL (4.0-11.0) Red Blood Count 2.46 x10^6/uL (4.30-5.70) Hemoglobin 7.2 g/dL (13.0-17.5) Hematocrit 23.3 % (39.0-53.0) Mean Corpuscular Volume 95 fL (79-100) Mean Corpuscular Hemoglobin 29 pg (25-35) Mean Corpuscular Hemoglobin Concent 31 g/dL (31-37) Red Cell Distribution Width 24.2 % (11.5-14.5) Platelet Count 169 x10^3/uL (140-400) Sodium Level 140 mmol/L (136-145) Potassium Level 5.3 mmol/L (3.5-5.1) Chloride Level 100 mmol/L (98-107) Carbon Dioxide Level 29 mmol/L (21-32) Anion Gap 11 (6-14) Blood Urea Nitrogen 41 mg/dL (8-26) Creatinine 6.6 mg/dL (0.7-1.3) Estimated GFR (Cockcroft-Gault) 8.6 Glucose Level 84 mg/dL (70-99) Calcium Level 9.4 mg/dL (8.5-10.1) Activated Clotting Time 169 sec (92-181) 186 sec (92-181) 211 sec (92-181) Test 10/15/21 10:53 10/15/21 14:00 Activated Clotting Time 216 sec (92-181) White Blood Count 7.3 x10^3/uL (4.0-11.0) Red Blood Count 2.88 x10^6/uL (4.30-5.70) Hemoglobin 8.6 g/dL (13.0-17.5) Hematocrit 26.9 % (39.0-53.0) Mean Corpuscular Volume 93 fL (79-100) Mean Corpuscular Hemoglobin 30 pg (25-35) Mean Corpuscular Hemoglobin Concent 32 g/dL (31-37) Red Cell Distribution Width 22.1 % (11.5-14.5) Platelet Count 163 x10^3/uL (140-400) Neutrophils (%) (Auto) 80 % (31-73) Lymphocytes (%) (Auto) 8 % (24-48) Monocytes (%) (Auto) 8 % (0-9) Eosinophils (%) (Auto) 3 % (0-3) Basophils (%) (Auto) 1 % (0-3) Neutrophils # (Auto) 5.8 x10^3/uL (1.8-7.7) Lymphocytes # (Auto) 0.6 x10^3/uL (1.0-4.8) Monocytes # (Auto) 0.6 x10^3/uL (0.0-1.1) Eosinophils # (Auto) 0.2 x10^3/uL (0.0-0.7) Basophils # (Auto) 0.1 x10^3/uL (0.0-0.2) Platelet Estimate Adequate (ADEQUATE) Anisocytosis Mod Assessment and Plan Assessmemt and Plan Problems Medical Problems: (1) NSTEMI (non-ST elevated myocardial infarction) Status: Acute Comment Review of Relevant I have reviewed the following items zaina (where applicable) has been applied. Medications: Current Medications Medications (Trade) Dose Ordered Sig/Guillermo Route PRN Reason Start Time Stop Time Status Last Admin Dose Admin Atorvastatin Calcium (Lipitor) 40 mg HS PO 10/14/21 21:00 10/14/21 20:07 Heparin Sodium/ Sodium Chloride (HEPARIN for ARTERIAL LINE FLUSH) 2,000 unit 1X ONCE IART 10/15/21 10:30 10/15/21 10:41 DC 10/15/21 10:30 Heparin Sodium/ Sodium Chloride (HEPARIN for ARTERIAL LINE FLUSH) 1,000 unit 1X ONCE IART 10/15/21 10:30 10/15/21 10:41 DC 10/15/21 10:30 Midazolam HCl (Versed) 3 mg 1X ONCE IV 10/15/21 10:30 10/15/21 10:41 DC 10/15/21 10:30 Fentanyl Citrate (Fentanyl 2ml Vial) 100 mcg 1X ONCE IV 10/15/21 10:30 10/15/21 10:41 DC 10/15/21 10:46 Iodixanol (Visipaque 320) 100 ml 1X ONCE IART 10/15/21 10:30 10/15/21 10:41 DC 10/15/21 10:30 Heparin Sodium (Porcine) (Heparin Sodium) 11,500 unit 1X ONCE IV 10/15/21 10:30 10/15/21 10:41 DC 10/15/21 10:14 Lidocaine HCl (Lidocaine 1% 20ml Vial) 19 ml 1X ONCE INJ 10/15/21 10:30 10/15/21 10:41 DC 10/15/21 10:30 Dextrose 500 ml @ 30 mls/hr 1X ONCE IV 10/15/21 10:30 10/16/21 03:09 10/15/21 10:30 Ondansetron HCl (Zofran) 4 mg 1X ONCE IVP 10/15/21 10:30 10/15/21 10:41 DC 10/15/21 08:06 Nitroglycerin (Nitroglycerin) 200 mcg 1X ONCE IART 10/15/21 10:30 10/15/21 10:41 DC 10/15/21 10:30 Justifications for Admission Other Justification CRISTIAN GONZALES MD Oct 15, 2021 16:08
[2021-10-15] MEDS: hydrALAZINE 25 MG TABLET PO SCH ×2 (16:37→21:27)
--- NOTE | 2021-10-15 17:26 | CARD ---
MR#: [id number] Date of Study: 10/15/2021 Ordering Physician: MELISSA KHAN, Referring Physician: MELISSA KHAN, Tech: RT Renny(R) APPROVED REPORT Technologist: RT Renny(R) Nurse: Radha Bryant RN Procedure(s) performed: Fluoro time: 43.2min dose: 266 gycm2 contrast: 307 ml moderate sedation: 190 mins Aortogram Left heart catheterization Temporary pacemaker insertion via left groin. Insertion of a Short-term External Heart Assist System into Heart, Percutaneous Approach ( [id number]) Removal of a Short-term External Heart Assist System from Heart, Percutaneous Approach ([id number]) Assistance with Cardiac Output using Impeller Pump, Continuous ([id number]) INDICATION The indication(s) include : non-STEMI . [facility] Clinical Frailty Scale [facility] Clinical Frailty Scale: Moderately Frail Heart Failure Heart Failure: Yes If Yes, Newly Diagnosed: Yes If Yes, HF Type: Diastolic If Yes, NYHA Class: Class II Class III CASE TECHNIQUE IV conscious sedation was used throughout procedure with appropriate monitoring and was performed in the presence of a registered nurse who was an independent trained observer other than the physician p erforming the procedure. During this case, Fluoroscopy and Iso-osmolar contrast were used for imaging . Specimen(s) Removed: N/A Estimated Blood loss: 50 cc's. PROCEDURE NARRATIVE Clinical information: 61-year-old male presented to the hospital in setting of chest pain and non-STEMI and was found to partida ve critical triple-vessel disease. His LAD was chronically occluded with significant mid to distal t wo thirds of the left ventricle being severely hypokinetic to akinetic consistent with likely nonviab le LAD territory. Due to significant right coronary artery disease and severe cardiomyopathy a decis ion was made to proceed with high risk complex PCI with left ventricular percutaneous assist support device. Patient initially presented with acute on chronic systolic and diastolic heart failure. Procedure details: After appropriate informed consent and discussion with the patient and his the bilateral groins were prepped and draped in usual sterile fashion. Under 1% lidocaine local anesthesia a 6 Surinamese she ath was placed in the right common femoral artery. Next, a diagnostic aortogram was performed which revealed patency of the bilateral abdominal aortic vessels but the vessels were notable for significa nt calcification and aneurysmal dilatation. Next, a 5 [place]amese sheath was placed in the left common fe moral vein via ultrasound guidance for placement of a temporary pacemaker. Next a 5 Surinamese balloonti pped temporary pacemaker was placed in the right ventricle and appropriate pacing thresholds were obt ained. Prior to initiation of the left ventricular assist device the patient was started on a blood transfusion due to a hemoglobin of 7. Insertion of left ventricular assist device, percutaneous: 2 preclosed devices were then deployed in the right common femoral artery and the right common femora l arterial access site was upsized to a 14 [place]inamese sheath with serial dilation over an Amplatz stiff w km. Next, a pigtail catheter was placed in the left ventricle and left ventricular diastolic pressu res were obtained. Next, a 0.018 inch wire was placed in the left ventricle and the pigtail catheter was removed. Over this wire the percutaneous assist device Impella CP was placed in the left ventri josefa with appropriate flows noted. PCI of the RCA: Heparin is used for anticoagulation to maintain an ACT greater than 200. Next, a single access techn ique was used and a short 6 [place]inamese sheath was placed in the right common femoral artery through the p revious Impella sheath. A 6 Surinamese AR-1 guide catheter was used to engage the right coronary artery. Diagnostic angiography confirmed severe proximal to mid calcific RCA disease. With the aid of a 2. 0 mm balloon a [place] wire was placed in the distal RCA. The balloon was used to exchange for a Vi per wire. Next, a Glooko orbital atherectomy device was used to perform orbital atherectomy at [facility]. Next, multiple serial balloon angioplasties were performed using 3.0 x 20 mm and 3.5 x 12 mm comp liant and noncompliant balloons. Ultimately, a guide liner was placed using the inch warm technique in the proximal segment of the mid right coronary artery. Next, a 4.0 x 38 mm resolute drug-eluting stent was deployed in the mid right coronary artery. Next a 4.0 x 15 mm resolute drug-eluting stent was placed in the proximal to midportion of the right coronary artery in an overlapping fashion with the previously placed stent. Next, distal portion of the stent, overlapped portion of the stents in the proximal stent were postdilated with a 4 mm compliant balloons. Final angiography demonstrated e xcellent stent expansion with TYRELL-3 flow in the vessel and no evidence of guide or wire related comp lications. Right groin closure: The right groin sheath was removed and prior to sheath removal diagnostic angiography demonstrated no aortic injury. The previously deployed preclosed sutures were then knotted down and hemostasis was achieved. The left groin sheath was removed via manual compression 2 hours after case completion. At case completion, the patient received 60 mg of prasugrel. The patient was transferred to the ICU in stable condition. No acute complications. Conclusion 1. Acute on chronic systolic and diastolic heart failure with three-vessel disease. 2. Moderate bilateral aortic atherosclerotic disease based on limited aortogram. 3. Placement and removal of a short-term external left ventricular assist device, Impella CP via the right common femoral arterial approach. 4. Placement and removal of a temporary pacemaker via the left common femoral vein 5. Single access technique with implantation of a 4.0 x 38 and 4.0 x 15 mm resolute drug-eluting jarvis nts in overlapping fashion in the proximal and mid right coronary artery after orbital atherectomy. Recommendations Aspirin 81 mg daily Prasugrel 10 mg daily High-dose statin therapy Could consider MRI viability study on outpatient basis for possibility of high risk PCI of the LAD al though based on echocardiogram it appears that the LAD territory is likely nonviable. Cardiac rehabilitation therapy if able in the present health system. Signed by : Melissa Khan, Electronically Approved : 10/15/2021 17:25:58
[2021-10-15] MEDS: METOPROLOL SUCC 24HR ER 50 MG TAB.ER.24H. PO SCH (17:57)
[2021-10-15] MEDS: FUROSEMIDE 20 MG TABLET PO SCH (17:57)
--- NOTE | 2021-10-15 18:21 | NUR ---
Heparin and Effient were non-administered on my end because they were given in Console Manager. No complications, will continue to monitor.
[2021-10-15] MEDS: ONDANSETRON PF 4 MG/2 ML VIAL. IVP PRN (19:46)
[2021-10-15] MEDS: ATORVASTATIN CALCIUM 40 MG TABLET. PO SCH (21:28)
[2021-10-15] MEDS: CALCITRIOL 0.25 MCG CAPSULE. PO SCH (21:32)
[2021-10-16] VITALS (13 sets, daily range): BP systolic 126–171; BP diastolic 57–79
[2021-10-16 05:50] LABS: HEMATOCRIT 28.2 % (39.0-53.0); HEMOGLOBIN 9.1 g/dL (13.0-17.5); RED CELL DISTRIBUTION WIDTH 22.9 % (11.5-14.5); WHITE BLOOD COUNT 8.7 x10^3/uL (4.0-11.0)
[2021-10-16 06:04] LABS: CALCIUM 9.3 mg/dL (8.5-10.1); CREATININE 9.2 mg/dL (0.7-1.3); GFR 5.9
[2021-10-16 06:09] LABS: POTASSIUM 5.5 mmol/L (3.5-5.1)
[2021-10-16] MEDS ORDERED: IV NORMAL SALINE 1000ML BAG 1,000 ML IV PRN ×2 (06:45)
[2021-10-16] MEDS ORDERED: DIALYSIS PATIENT. MC PRN ×2 (06:45)
[2021-10-16] MEDS ORDERED: PRASUGREL 10 MG TABLET. PO SCH (08:00)
[2021-10-16] MEDS: ASPIRIN ENTERIC COATED 81 MG TABLET.DR. PO SCH (08:45)
[2021-10-16] MEDS: CALCIUM ACETATE 667 MG CAPSULE PO SCH ×2 (08:45→12:33)
[2021-10-16] MEDS ORDERED: AMIODARONE HCL 200 MG TABLET. PO SCH (09:00)
--- NOTE | 2021-10-16 09:15 | PDOC ---
INGRID HORNER COVER MAKER 10/16/21 0915: CARDIO Progress Notes Date and Time Date of Service 10/16/2021 Time of Evaluation 0815 Subjective Subjective: No Chest Pain, No shortness of breath, No Palpitations Vitals Vitals Vital Signs Date Time Temp Pulse Resp B/P (MAP) Pulse Ox O2 Delivery O2 Flow Rate FiO2 10/16/21 06:00 63 26 134/62 (86) 95 Room Air 10/16/21 05:00 97.3 97.3 10/16/21 04:00 2.0 Weight Weight [ ] Input and Output Intake and Output Intake and Output 10/16/21 07:00 Intake Total 1670 ml Output Total 0 ml Balance 1670 ml Intake Oral 470 ml Blood Product IV Normal Saline Flush 1200 ml Output Urine Total 0 ml Laboratory Labs Laboratory Tests Test 10/15/21 09:08 10/15/21 09:24 10/15/21 09:51 10/15/21 10:53 Activated Clotting Time 169 sec (92-181) 186 sec (92-181) 211 sec (92-181) 216 sec (92-181) Test 10/15/21 14:00 10/16/21 05:00 White Blood Count 7.3 x10^3/uL (4.0-11.0) 8.7 x10^3/uL (4.0-11.0) Red Blood Count 2.88 x10^6/uL (4.30-5.70) 3.00 x10^6/uL (4.30-5.70) Hemoglobin 8.6 g/dL (13.0-17.5) 9.1 g/dL (13.0-17.5) Hematocrit 26.9 % (39.0-53.0) 28.2 % (39.0-53.0) Mean Corpuscular Volume 93 fL (79-100) 94 fL (79-100) Mean Corpuscular Hemoglobin 30 pg (25-35) 30 pg (25-35) Mean Corpuscular Hemoglobin Concent 32 g/dL (31-37) 32 g/dL (31-37) Red Cell Distribution Width 22.1 % (11.5-14.5) 22.9 % (11.5-14.5) Platelet Count 163 x10^3/uL (140-400) 193 x10^3/uL (140-400) Neutrophils (%) (Auto) 80 % (31-73) Lymphocytes (%) (Auto) 8 % (24-48) Monocytes (%) (Auto) 8 % (0-9) Eosinophils (%) (Auto) 3 % (0-3) Basophils (%) (Auto) 1 % (0-3) Neutrophils # (Auto) 5.8 x10^3/uL (1.8-7.7) Lymphocytes # (Auto) 0.6 x10^3/uL (1.0-4.8) Monocytes # (Auto) 0.6 x10^3/uL (0.0-1.1) Eosinophils # (Auto) 0.2 x10^3/uL (0.0-0.7) Basophils # (Auto) 0.1 x10^3/uL (0.0-0.2) Platelet Estimate Adequate (ADEQUATE) Anisocytosis Mod Sodium Level 137 mmol/L (136-145) Potassium Level 5.5 mmol/L (3.5-5.1) Chloride Level 97 mmol/L (98-107) Carbon Dioxide Level 28 mmol/L (21-32) Anion Gap 12 (6-14) Blood Urea Nitrogen 69 mg/dL (8-26) Creatinine 9.2 mg/dL (0.7-1.3) Estimated GFR (Cockcroft-Gault) 5.9 Glucose Level 106 mg/dL (70-99) Calcium Level 9.3 mg/dL (8.5-10.1) Physical Exam HEENT: Neck Supple W Full Motion Chest: Symmetric LUNGS: Clear to Auscultation Heart: RRR (SR) Abdomen: Soft N/T Extremities: No Edema Neurology: alert, oriented, follow commands Other Exams Bilateral arteriotomy site intact, soft and no erythema. Right groin with some bruising and tenderness otherwise intact. Neurovascular status to bilateral LE intact. Assessment Assessment 1. CAD; Noted with 3VD per LHC 2. New onset AFIB with RVR; went back into AFIB with RVR in HD today. Did convert back to SR. Probable poor candidate for long-term OAC given chronic anemia. Maintaining SR 3. NSTEMI: S/P PCI/EMELI in overlapping fashion in the proximal and mid right coronary artery after orbital atherectomy with temporary impella and TVP 4. Acute on chronic diastolic/systolic CHF; LVEDP 34 mmHg per cath 5. Ischemic cardiomyopathy; echo with severe LV systolic dysfunction with an EF of 20%. The distal 1/3rd of the LV is akinetic. The remainder of the LV is moderately hypokinetic. 6. Anemia of chronic disease: post transfusion 7. LBBB 8. ESRD on HD 9. Arrhythmia; 15-beat NSVT in HD today then converted to AFIB with RVR. Rhythm strips not available 10. PAD: moderate bilateral aortic atherosclerotic disease based on limited aortogram Recommendations Start amiodarone for rhythm maintenance Continue Toprol for rate control Secondary prevention; increase Lipitor to 40mg HF optimization; continue Toprol, hydralazine, Imdur. Unable to start VALERIE/ARB with hyperkalemia Could consider MRI viability study on outpatient basis for possibility of high risk PCI of the LAD although based on echocardiogram it appears that the LAD t erritory is likely nonviable. Cardiac rehabilitation therapy if able in the present health system. ASA and effient Fluid off loading per HD Justicifation of Admission Dx: Justifications for Admission: Justification of Admission Dx: Yes MELISSA XIONG MD 10/16/21 5758: CARDIO Progress Notes Plan Plan Pt. see and examined. Agree with above LIVING SKILLS ADVISOR note. Patient reports mild right groin soreness but no hematoma. RLE warm to touch. No chest pain or dyspnea. Continue asa, prasugrel. Supportive care. F/u in the office in 2-3 months INGRID HORNER APRN Oct 16, 2021 09:15 MELISSA XIONG MD Oct 16, 2021 23:08
--- NOTE | 2021-10-16 10:19 | PDOC ---
DATE OF SERVICE DATE: 10/16/21 TIME: 10:15 SUBJECTIVE ROS Denies CP or SOB. No complaints on dialysis OBJECTIVE Vital Signs Vital Signs Date Time Temp Pulse Resp B/P (MAP) Pulse Ox O2 Delivery O2 Flow Rate FiO2 10/16/21 10:02 97.7 69 18 144/79 (100) 94 Room Air 97.7 10/16/21 04:00 2.0 I & 0 Intake and Output 10/16/21 07:00 Intake Total 1670 ml Output Total 0 ml Balance 1670 ml Intake Oral 470 ml Blood Product IV Normal Saline Flush 1200 ml Output Urine Total 0 ml PHYSICAL EXAM Physical Exam GEN: NAD, HEENT: OM moist NECK: Supple. LUNGS: diminished breath sounds at the right base, Non labored CARDIOVASCULAR: RRR ABDOMEN: Soft, NT EXTREMITIES: no pitting edema, AV access Lt NEURO- Grossly normal Skin No rash -No Can DIAGNOSIS/ASSESSMENT Assessment & Plan ESRD- [facility]Seen on dialysis , tolerating well. No complaints. Continue as ordered. Aubrey LOTT NSTEMI S/P LHC on 10/13/21- 3VD per LH . S/P PCI/EMELI on 10/15 in the proximal and mid right coronary artery after orbital atherectomy with temporary impella New onset AFIB with RVR; rate controlled per card Probable poor candidate for long-term OAC given chronic anemia. Maintaining SR Chronic diastolic CHF appeaars compensated H/o cardiomyopathy; most recent echo 08/2018 [facility] LVEF 50% LBBB Anemia- - Hgb stable . EGD in 2018 nonbleeding gastric ulcers by esoph agogastroduodenoscopy and erosive gastritis. COMMENT/RELEVANT DATA Meds Current Medications Medications (Trade) Dose Ordered Sig/Guillermo Start Time Stop Time Status Last Admin Dose Admin Acetaminophen (Tylenol) 650 mg PRN Q6HRS PRN 10/12/21 16:45 Amiodarone HCl (Cordarone) 200 mg BID 10/16/21 09:00 Amiodarone HCl 150 mg/Dextrose 103 ml @ 600 mls/hr 1X ONCE 10/14/21 12:15 10/14/21 12:25 DC 10/14/21 12:45 600 MLS/HR Amiodarone HCl 450 mg/Dextrose 259 ml @ 0 mls/hr CONT PRN 10/14/21 12:15 10/15/21 12:14 DC 10/14/21 22:32 16.7 MLS/HR Amlodipine Besylate (Norvasc) 10 mg BID 10/12/21 21:00 10/12/21 17:13 DC Aspirin (Aspirin Chewable) 324 mg 1X ONCE 10/12/21 17:15 10/12/21 17:16 DC 10/12/21 17:49 324 MG Aspirin (Vasquez Aspirin) 325 mg 1X ONCE 10/15/21 11:15 10/15/21 11:17 DC Aspirin (Ecotrin) 81 mg DAILYWBKFT 10/13/21 08:00 10/16/21 08:45 81 MG Atorvastatin Calcium (Lipitor) 40 mg HS 10/14/21 21:00 10/15/21 21:28 40 MG Calcitriol (Rocaltrol) 0.5 mcg QHS 10/12/21 22:30 10/15/21 21:32 0.5 MCG Calcium Acetate (Phoslo) 667 mg TIDWMEALS 10/12/21 17:00 10/16/21 08:45 667 MG Calcium Carbonate/ Glycine (Tums) 500 mg PRN Q3HRS PRN 10/12/21 16:45 Carvedilol (Coreg) 25 mg BIDWMEALS 10/12/21 17:00 10/12/21 17:08 DC Cinacalcet (Sensipar) 60 mg DAILY 10/13/21 09:00 10/15/21 14:34 60 MG Clopidogrel Bisulfate (Plavix) 300 mg 1X ONCE 10/13/21 19:00 10/13/21 19:01 DC 10/13/21 19:21 300 MG Dextrose 500 ml @ 30 mls/hr 1X ONCE 10/15/21 10:30 10/16/21 03:09 DC 10/15/21 10:30 30 MLS/HR Diltiazem HCl (Cardizem Iv Push) 10 mg 1X ONCE 10/12/21 15:15 10/12/21 15:16 DC 10/12/21 15:26 10 MG Diltiazem HCl 125 mg/Dextrose 125 ml @ 10 mls/hr 1X ONCE 10/12/21 15:15 10/13/21 03:44 DC 10/12/21 15:32 10 MLS/HR Diltiazem HCl 125 mg/Sodium Chloride 125 ml @ 10 mls/hr 1X ONCE 10/12/21 15:15 10/12/21 15:14 DC Fentanyl Citrate (Fentanyl 2ml Vial) 100 mcg STK-MED ONCE 10/15/21 10:46 10/15/21 10:46 DC Furosemide (Lasix) 20 mg DAILY 10/13/21 09:00 10/15/21 17:57 20 MG Heparin Sodium (Porcine) (Heparin Sodium) 500 unit 1X ONCE 10/15/21 11:15 10/15/21 11:17 DC Heparin Sodium/ Dextrose 250 ml @ 10.632 mls/ hr CONT PRN 10/12/21 16:30 10/13/21 13:08 DC 10/13/21 03:01 10.632 MLS/HR Heparin Sodium/ Sodium Chloride (HEPARIN for ARTERIAL LINE FLUSH) 1,000 unit 1X ONCE 10/15/21 10:30 10/15/21 10:41 DC 10/15/21 10:30 1,000 UNIT Hydralazine HCl (Apresoline) 25 mg BID 10/12/21 22:30 10/15/21 21:27 25 MG Info (Non-Icu Electrolyte Protocol) 1 ea PRN DAILY PRN 10/12/21 16:45 Info (PHARMACY MONITORING -- do not chart) 1 each PRN DAILY PRN 10/16/21 06:45 Iodixanol (Visipaque 320) 100 ml 1X ONCE 10/15/21 10:30 10/15/21 10:41 DC 10/15/21 10:30 307 ML Isosorbide Mononitrate (Imdur) 30 mg DAILY 10/13/21 09:00 10/15/21 16:05 30 MG Lidocaine HCl (Lidocaine 1% 20ml Vial) 19 ml 1X ONCE 10/15/21 10:30 10/15/21 10:41 DC 10/15/21 10:30 19 ML Lidocaine HCl (Lidocaine 2% 20ml Vial) 20 ml 1X ONCE 10/13/21 11:30 10/13/21 11:31 DC 10/13/21 11:30 10 ML Metoprolol Succinate (Toprol Xl) 50 mg DAILY 10/12/21 17:30 10/15/21 17:57 50 MG Midazolam HCl (Versed) 3 mg 1X ONCE 10/15/21 10:30 10/15/21 10:41 DC 10/15/21 10:30 4 MG Nitroglycerin (Nitroglycerin) 200 mcg STK-MED ONCE 10/15/21 10:26 10/15/21 10:26 DC Nitroglycerin (Nitrostat) 0.4 mg PRN Q5MIN PRN 10/14/21 11:00 Non-Formulary Medication (Ferric Citrate ) 2 tab TID 10/13/21 09:00 UNV Ondansetron HCl (Zofran) 4 mg 1X ONCE 10/15/21 10:30 10/15/21 10:41 DC 10/15/21 08:06 4 MG Oxycodone/ Acetaminophen (Percocet 5/325) 2 tab PRN Q4HRS PRN 10/12/21 16:45 10/14/21 06:23 2 TAB Pantoprazole Sodium (Protonix) 40 mg DAILYAC 10/13/21 07:30 10/15/21 14:34 40 MG Perflutren Protein Type A Microsphe (Optison) 0.66 mg STK-MED ONCE 10/13/21 07:29 10/13/21 07:29 DC Phenylephrine HCl (PHENYLEPHRINE in 0.9% NACL PF) 1 mg STK-MED ONCE 10/15/21 09:16 10/15/21 09:16 DC Prasugrel (Effient) 10 mg DAILYWBKFT 10/16/21 08:00 Senna/Docusate Sodium (Senna Plus) 1 tab BID 10/12/21 21:00 10/15/21 21:27 1 TAB Sodium Chloride 1,000 ml @ 400 mls/hr Q2H30M PRN 10/16/21 06:45 10/16/21 18:44 Zolpidem Tartrate (Ambien) 5 mg PRN QHS PRN 10/12/21 16:45 Lab Laboratory Tests Test 10/15/21 10:53 10/15/21 14:00 10/16/21 05:00 Activated Clotting Time 216 sec (92-181) White Blood Count 7.3 x10^3/uL (4.0-11.0) 8.7 x10^3/uL (4.0-11.0) Red Blood Count 2.88 x10^6/uL (4.30-5.70) 3.00 x10^6/uL (4.30-5.70) Hemoglobin 8.6 g/dL (13.0-17.5) 9.1 g/dL (13.0-17.5) Hematocrit 26.9 % (39.0-53.0) 28.2 % (39.0-53.0) Mean Corpuscular Volume 93 fL (79-100) 94 fL (79-100) Mean Corpuscular Hemoglobin 30 pg (25-35) 30 pg (25-35) Mean Corpuscular Hemoglobin Concent 32 g/dL (31-37) 32 g/dL (31-37) Red Cell Distribution Width 22.1 % (11.5-14.5) 22.9 % (11.5-14.5) Platelet Count 163 x10^3/uL (140-400) 193 x10^3/uL (140-400) Neutrophils (%) (Auto) 80 % (31-73) Lymphocytes (%) (Auto) 8 % (24-48) Monocytes (%) (Auto) 8 % (0-9) Eosinophils (%) (Auto) 3 % (0-3) Basophils (%) (Auto) 1 % (0-3) Neutrophils # (Auto) 5.8 x10^3/uL (1.8-7.7) Lymphocytes # (Auto) 0.6 x10^3/uL (1.0-4.8) Monocytes # (Auto) 0.6 x10^3/uL (0.0-1.1) Eosinophils # (Auto) 0.2 x10^3/uL (0.0-0.7) Basophils # (Auto) 0.1 x10^3/uL (0.0-0.2) Platelet Estimate Adequate (ADEQUATE) Anisocytosis Mod Sodium Level 137 mmol/L (136-145) Potassium Level 5.5 mmol/L (3.5-5.1) Chloride Level 97 mmol/L (98-107) Carbon Dioxide Level 28 mmol/L (21-32) Anion Gap 12 (6-14) Blood Urea Nitrogen 69 mg/dL (8-26) Creatinine 9.2 mg/dL (0.7-1.3) Estimated GFR (Cockcroft-Gault) 5.9 Glucose Level 106 mg/dL (70-99) Calcium Level 9.3 mg/dL (8.5-10.1) Results All relevant outside records, renal labs, imaging studies, telemetry/EKG's were reviewed. Justicifation of Admission Dx: Justifications for Admission: Justification of Admission Dx: Yes MATT LOYA MD Oct 16, 2021 10:19
[2021-10-16] MEDS ORDERED: PRAS10TA9 PO (10:30)
[2021-10-16] MEDS ORDERED: FURO20TA3 PO (10:30)
[2021-10-16] MEDS ORDERED: ASPI-886 PO (10:30)
[2021-10-16] MEDS ORDERED: ATOR40TA59 PO (10:30)
[2021-10-16] MEDS ORDERED: METO50TA4 PO (10:30)
[2021-10-16] MEDS ORDERED: AMIO200T53 PO (10:30)
--- NOTE | 2021-10-16 10:33 | PDOC ---
[employer] PROGRESS NOTE Date of Service DOS: DATE: 10/16/21 TIME: 10:08 Chief Complaint Chief Complaint Unstable angina - CAD on [facility] 10/13/2021, needs referral for CABG vs high risk PCI New onset AFIB with RVR; rate now controlled. Anemia of chronic disease - Hb 6.8 on 10/14/21, s/p 1u prbc Acute on chronic diastolic CHF - due to above H/o cardiomyopathy; most recent echo 08/2018 wt LVEF 50%, now EF 20% with left ventricular wall motion abnormalities LBBB ESRD on HD - MWF History of Present Illness History of Present Illness Mr Norman is a 61-year-old group home inmate w/ PMHx ESRD on HD on MWF who presented to the emergency room 10/12 with c/o chest pain. Patient has a history of ESRD and was getting dialysis when he felt he described as a lot of pressure on his chest along with fluttering. Reports never having a feeling like this before. He states he thinks that they pulled more fluid leading to his symptoms Is on blood pressure medication through his group home. Does report the chest pressure was going up into his neck as well. Patient noted to be in A. fib with RVR in the emergency room. Started on Cardizem drip. Currently denies any CP or SOB, states I dont have any fluid on me. Denies N/V/D. No F/C, No abdominal pain 10/13: To cardiac catheterization today with severe CAD no interventions given need discussion for referral for CABG consideration versus complex PCI. He has requested to discuss with his and cardiology plans to do so as well. 10/14: Echocardiogram showed EF of 20% with left ventricular wall motion abnormalities. Will likely need high risk PCI to RCA and temporary ventricular assistance post catheterization. Went into rapid atrial fibrillation initially appeared to be ventricular tachycardia was transferred to ICU for closer monitoring converted to sinus spontaneously. He had some shortness of breath and panic with palpitations at the time and seen after this episode in ICU is feeling more comfortable restarted on dialysis. Hb 6.8 transfused 1 unit PRBC with dialysis. Will be n.p.o. after midnight. CC time 42 minutes 10/15: Afebrile. Denies chest pain. Per RN report, patient had PCI with 2 stents placed to RCA, 1 unit of blood during procedure, and 1 unit upon return to ICU. Some questions about we he would d/c from the hospital. 10/16: Patient seen in ICU. He denies chest pain. Currently receiving hemodialysis in ICU. Concerned about his renal diet while in hospital. Apparently cardiology concerned that he believe he can discharge back to group home. Discharged on amiodarone, Toprol, Lipitor, hydralazine, Imdur, aspirin, and Effient. No VALERIE/ARB due to concern for hyperkalemia. Greater than 30 minutes spent managing the discharge of this patient. Vitals/I&O Vitals/I&O: Vital Signs Date Time Temp Pulse Resp B/P (MAP) Pulse Ox O2 Delivery O2 Flow Rate FiO2 10/16/21 10:02 97.7 69 18 144/79 (100) 94 Room Air 97.7 10/16/21 04:00 2.0 I & O 10/15/21 10/15/21 10/16/21 15:00 23:00 07:00 Intake Total 1520 ml 150 ml Output Total 0 ml 0 ml 0 ml Balance 1520 ml 150 ml 0 ml Physical Exam General: Alert, Oriented X3, Cooperative, No acute distress Heart: Other (AFIB ) Lungs: Clear Abdomen: Soft Extremities: No edema Skin: No significant lesion Labs Labs: Laboratory Tests Test 10/15/21 10:53 10/15/21 14:00 10/16/21 05:00 Activated Clotting Time 216 sec (92-181) White Blood Count 7.3 x10^3/uL (4.0-11.0) 8.7 x10^3/uL (4.0-11.0) Red Blood Count 2.88 x10^6/uL (4.30-5.70) 3.00 x10^6/uL (4.30-5.70) Hemoglobin 8.6 g/dL (13.0-17.5) 9.1 g/dL (13.0-17.5) Hematocrit 26.9 % (39.0-53.0) 28.2 % (39.0-53.0) Mean Corpuscular Volume 93 fL (79-100) 94 fL (79-100) Mean Corpuscular Hemoglobin 30 pg (25-35) 30 pg (25-35) Mean Corpuscular Hemoglobin Concent 32 g/dL (31-37) 32 g/dL (31-37) Red Cell Distribution Width 22.1 % (11.5-14.5) 22.9 % (11.5-14.5) Platelet Count 163 x10^3/uL (140-400) 193 x10^3/uL (140-400) Neutrophils (%) (Auto) 80 % (31-73) Lymphocytes (%) (Auto) 8 % (24-48) Monocytes (%) (Auto) 8 % (0-9) Eosinophils (%) (Auto) 3 % (0-3) Basophils (%) (Auto) 1 % (0-3) Neutrophils # (Auto) 5.8 x10^3/uL (1.8-7.7) Lymphocytes # (Auto) 0.6 x10^3/uL (1.0-4.8) Monocytes # (Auto) 0.6 x10^3/uL (0.0-1.1) Eosinophils # (Auto) 0.2 x10^3/uL (0.0-0.7) Basophils # (Auto) 0.1 x10^3/uL (0.0-0.2) Platelet Estimate Adequate (ADEQUATE) Anisocytosis Mod Sodium Level 137 mmol/L (136-145) Potassium Level 5.5 mmol/L (3.5-5.1) Chloride Level 97 mmol/L (98-107) Carbon Dioxide Level 28 mmol/L (21-32) Anion Gap 12 (6-14) Blood Urea Nitrogen 69 mg/dL (8-26) Creatinine 9.2 mg/dL (0.7-1.3) Estimated GFR (Cockcroft-Gault) 5.9 Glucose Level 106 mg/dL (70-99) Calcium Level 9.3 mg/dL (8.5-10.1) Assessment and Plan Assessmemt and Plan Problems Medical Problems: (1) NSTEMI (non-ST elevated myocardial infarction) Status: Acute Comment Review of Relevant I have reviewed the following items zaina (where applicable) has been applied. Medications: Current Medications Medications (Trade) Dose Ordered Sig/Guillermo Route PRN Reason Start Time Stop Time Status Last Admin Dose Admin Heparin Sodium/ Sodium Chloride (HEPARIN for ARTERIAL LINE FLUSH) 2,000 unit 1X ONCE IART 10/15/21 10:30 10/15/21 10:41 DC 10/15/21 10:30 Heparin Sodium/ Sodium Chloride (HEPARIN for ARTERIAL LINE FLUSH) 1,000 unit 1X ONCE IART 10/15/21 10:30 10/15/21 10:41 DC 10/15/21 10:30 Midazolam HCl (Versed) 3 mg 1X ONCE IV 10/15/21 10:30 10/15/21 10:41 DC 10/15/21 10:30 Fentanyl Citrate (Fentanyl 2ml Vial) 100 mcg 1X ONCE IV 10/15/21 10:30 10/15/21 10:41 DC 10/15/21 10:46 Iodixanol (Visipaque 320) 100 ml 1X ONCE IART 10/15/21 10:30 10/15/21 10:41 DC 10/15/21 10:30 Heparin Sodium (Porcine) (Heparin Sodium) 11,500 unit 1X ONCE IV 10/15/21 10:30 10/15/21 10:41 DC 10/15/21 10:14 Lidocaine HCl (Lidocaine 1% 20ml Vial) 19 ml 1X ONCE INJ 10/15/21 10:30 10/15/21 10:41 DC 10/15/21 10:30 Dextrose 500 ml @ 30 mls/hr 1X ONCE IV 10/15/21 10:30 10/16/21 03:09 DC 10/15/21 10:30 Ondansetron HCl (Zofran) 4 mg 1X ONCE IVP 10/15/21 10:30 10/15/21 10:41 DC 10/15/21 08:06 Nitroglycerin (Nitroglycerin) 200 mcg 1X ONCE IART 10/15/21 10:30 10/15/21 10:41 DC 10/15/21 10:30 Justifications for Admission Other Justification CRISTIAN GONZALES MD Oct 16, 2021 10:33
--- NOTE | 2021-10-16 10:35 | PDOC3 ---
Discharge Summary Visit Information Date of Admission: Oct 12, 2021 Date of Discharge: Oct 16, 2021 Final Diagnosis Problems Medical Problems: (1) NSTEMI (non-ST elevated myocardial infarction) Status: Acute Brief Hospital Course Allergies Allergies Coded Allergies Type Severity Reaction Last Updated Verified Penicillins Allergy Severe ANAPHYLAXIS 09/10/16 Yes Vital Signs Vital Signs Date Time Temp Pulse Resp B/P (MAP) Pulse Ox O2 Delivery O2 Flow Rate FiO2 10/16/21 10:02 97.7 69 18 144/79 (100) 94 Room Air 97.7 10/16/21 04:00 2.0 Lab Results Laboratory Tests Test 10/14/21 15:40 10/15/21 04:50 10/15/21 09:08 10/15/21 09:24 Hepatitis B Surface Antibody Reactive White Blood Count 7.1 x10^3/uL (4.0-11.0) Red Blood Count 2.46 x10^6/uL (4.30-5.70) Hemoglobin 7.2 g/dL (13.0-17.5) Hematocrit 23.3 % (39.0-53.0) Mean Corpuscular Volume 95 fL (79-100) Mean Corpuscular Hemoglobin 29 pg (25-35) Mean Corpuscular Hemoglobin Concent 31 g/dL (31-37) Red Cell Distribution Width 24.2 % (11.5-14.5) Platelet Count 169 x10^3/uL (140-400) Sodium Level 140 mmol/L (136-145) Potassium Level 5.3 mmol/L (3.5-5.1) Chloride Level 100 mmol/L (98-107) Carbon Dioxide Level 29 mmol/L (21-32) Anion Gap 11 (6-14) Blood Urea Nitrogen 41 mg/dL (8-26) Creatinine 6.6 mg/dL (0.7-1.3) Estimated GFR (Cockcroft-Gault) 8.6 Glucose Level 84 mg/dL (70-99) Calcium Level 9.4 mg/dL (8.5-10.1) Activated Clotting Time 169 sec (92-181) 186 sec (92-181) Test 10/15/21 09:51 10/15/21 10:53 10/15/21 14:00 10/16/21 05:00 Activated Clotting Time 211 sec (92-181) 216 sec (92-181) White Blood Count 7.3 x10^3/uL (4.0-11.0) 8.7 x10^3/uL (4.0-11.0) Red Blood Count 2.88 x10^6/uL (4.30-5.70) 3.00 x10^6/uL (4.30-5.70) Hemoglobin 8.6 g/dL (13.0-17.5) 9.1 g/dL (13.0-17.5) Hematocrit 26.9 % (39.0-53.0) 28.2 % (39.0-53.0) Mean Corpuscular Volume 93 fL (79-100) 94 fL (79-100) Mean Corpuscular Hemoglobin 30 pg (25-35) 30 pg (25-35) Mean Corpuscular Hemoglobin Concent 32 g/dL (31-37) 32 g/dL (31-37) Red Cell Distribution Width 22.1 % (11.5-14.5) 22.9 % (11.5-14.5) Platelet Count 163 x10^3/uL (140-400) 193 x10^3/uL (140-400) Neutrophils (%) (Auto) 80 % (31-73) Lymphocytes (%) (Auto) 8 % (24-48) Monocytes (%) (Auto) 8 % (0-9) Eosinophils (%) (Auto) 3 % (0-3) Basophils (%) (Auto) 1 % (0-3) Neutrophils # (Auto) 5.8 x10^3/uL (1.8-7.7) Lymphocytes # (Auto) 0.6 x10^3/uL (1.0-4.8) Monocytes # (Auto) 0.6 x10^3/uL (0.0-1.1) Eosinophils # (Auto) 0.2 x10^3/uL (0.0-0.7) Basophils # (Auto) 0.1 x10^3/uL (0.0-0.2) Platelet Estimate Adequate (ADEQUATE) Anisocytosis Mod Sodium Level 137 mmol/L (136-145) Potassium Level 5.5 mmol/L (3.5-5.1) Chloride Level 97 mmol/L (98-107) Carbon Dioxide Level 28 mmol/L (21-32) Anion Gap 12 (6-14) Blood Urea Nitrogen 69 mg/dL (8-26) Creatinine 9.2 mg/dL (0.7-1.3) Estimated GFR (Cockcroft-Gault) 5.9 Glucose Level 106 mg/dL (70-99) Calcium Level 9.3 mg/dL (8.5-10.1) Laboratory Tests Test 10/15/21 10:53 10/15/21 14:00 10/16/21 05:00 Activated Clotting Time 216 sec (92-181) White Blood Count 7.3 x10^3/uL (4.0-11.0) 8.7 x10^3/uL (4.0-11.0) Red Blood Count 2.88 x10^6/uL (4.30-5.70) 3.00 x10^6/uL (4.30-5.70) Hemoglobin 8.6 g/dL (13.0-17.5) 9.1 g/dL (13.0-17.5) Hematocrit 26.9 % (39.0-53.0) 28.2 % (39.0-53.0) Mean Corpuscular Volume 93 fL (79-100) 94 fL (79-100) Mean Corpuscular Hemoglobin 30 pg (25-35) 30 pg (25-35) Mean Corpuscular Hemoglobin Concent 32 g/dL (31-37) 32 g/dL (31-37) Red Cell Distribution Width 22.1 % (11.5-14.5) 22.9 % (11.5-14.5) Platelet Count 163 x10^3/uL (140-400) 193 x10^3/uL (140-400) Neutrophils (%) (Auto) 80 % (31-73) Lymphocytes (%) (Auto) 8 % (24-48) Monocytes (%) (Auto) 8 % (0-9) Eosinophils (%) (Auto) 3 % (0-3) Basophils (%) (Auto) 1 % (0-3) Neutrophils # (Auto) 5.8 x10^3/uL (1.8-7.7) Lymphocytes # (Auto) 0.6 x10^3/uL (1.0-4.8) Monocytes # (Auto) 0.6 x10^3/uL (0.0-1.1) Eosinophils # (Auto) 0.2 x10^3/uL (0.0-0.7) Basophils # (Auto) 0.1 x10^3/uL (0.0-0.2) Platelet Estimate Adequate (ADEQUATE) Anisocytosis Mod Sodium Level 137 mmol/L (136-145) Potassium Level 5.5 mmol/L (3.5-5.1) Chloride Level 97 mmol/L (98-107) Carbon Dioxide Level 28 mmol/L (21-32) Anion Gap 12 (6-14) Blood Urea Nitrogen 69 mg/dL (8-26) Creatinine 9.2 mg/dL (0.7-1.3) Estimated GFR (Cockcroft-Gault) 5.9 Glucose Level 106 mg/dL (70-99) Calcium Level 9.3 mg/dL (8.5-10.1) Brief Hospital Course Mr. Norman is a 61 old male who presented with: Chest pain secondary to A. fib with RVR, history diastolic CHF, history of cardi omyopathy, troponinemia. History hypertension. Normocytic anemia Mr Norman is a 61-year-old [facility] inmate w/ PMHx ESRD on HD on MWF who presented to the emergency room 10/12 with c/o chest pain. Patient has a history of ESRD and was getting dialysis when he felt he described as a lot of pressure on his chest along with fluttering. Reports never having a feeling like this before. He states he thinks that they pulled more fluid leading to his symptoms Is on blood pressure medication through his [facility]. Does report the chest pressure was going up into his neck as well. Patient noted to be in A. fib with RVR in the emergency room. Started on Cardizem drip. Currently denies any CP or SOB, states I dont have any fluid on me. Denies N/V/D. No F/C, No abdominal pain 10/13: To cardiac catheterization today with severe CAD no interventions given need discussion for referral for CABG consideration versus complex PCI. He has requested to discuss with his and cardiology plans to do so as well. 10/14: Echocardiogram showed EF of 20% with left ventricular wall motion abnormalities. Will likely need high risk PCI to RCA and temporary ventricular assistance post catheterization. Went into rapid atrial fibrillation initially appeared to be ventricular tachycardia was transferred to ICU for closer monitoring converted to sinus spontaneously. He had some shortness of breath and panic with palpitations at the time and seen after this episode in ICU is feeling more comfortable restarted on dialysis. Hb 6.8 transfused 1 unit PRBC with dialysis. Will be n.p.o. after midnight. CC time 42 minutes 10/15: Afebrile. Denies chest pain. Per RN report, patient had PCI with 2 stents placed to RCA, 1 unit of blood during procedure, and 1 unit upon return to ICU. Some questions about we he would d/c from the hospital. 10/16: Patient seen in ICU. He denies chest pain. Currently receiving hemod ialysis in ICU. Concerned about his renal diet while in hospital. Apparently cardiology concerned that he believe he can discharge back to [facility]. Discharged on amiodarone, Toprol, Lipitor, hydralazine, Imdur, aspirin, and Effient. No VALERIE/ARB due to concern for hyperkalemia. Greater than 30 minutes spent managing the discharge of this patient. Discharge Information Condition at Discharge: Stable Disposition/Orders: D/C to Another Facility Scheduled Acetaminophen (Acetaminophen) 325 Mg Tablet, 325 MG PO PRN Q6HRS for Headache, fever, (Reported) Entered as Reported by: MARY JO CASIANO on 08/22/18 1331 Last Action: Reviewed on 10/12/212155 by STACY PELLETIER RN Amiodarone Hcl (Amiodarone Hcl) 200 Mg Tablet, 200 MG PO BID for Arrhythmia, #60 Ref 9 Prescribed by: CRISTIAN GONZALES MD on 10/16/21 1030 Amlodipine Besylate (Amlodipine Besylate) 10 Mg Tablet, 10 MG PO DAILY for htn, (Reported) Entered as Reported by: HUBER FELDER on 08/22/182055 Last Action: Edited on 10/12/212155 by STACY PELLETIER RN Aspirin (Aspirin Ec) 81 Mg Tablet.dr, 81 MG PO DAILYWBKFT for CAD, #30 Ref 9 Prescribed by: CRISTIAN GONZALES MD on 10/16/21 1030 Atorvastatin Calcium (Atorvastatin Calcium) 40 Mg Tablet, 40 MG PO HS for HLD, #30 Ref 9 Prescribed by: CRISTIAN GONZALES MD on 10/16/21 1030 Calcitriol (Calcitriol) 0.5 Mcg Capsule, 0.5 MCG PO QHS for , (Reported) Entered as Reported by: STACY PELLTEIER RN on 10/12/212155 Last Action: Converted on 10/12/212203 by TONIO SEAMAN MD Calcium Carbonate (Tums) 200 Mg Tab.chew, 500 MG PO DAILY for , (Reported) Entered as Reported by: STACY PELLETIER RN on 10/12/212155 Last Action: HELD on 10/12/212203 by TONIO SEAMAN MD Cinacalcet Hcl (Sensipar) 60 Mg Tablet, 1 TAB PO DAILY for for 30 Days, #30 Ref 0 (Reported) Entered as Reported by: STACY PELLETIER RN on 10/12/212155 Last Action: Converted on 10/12/212203 by TONIO SEAMAN MD Ferric Citrate (Ferric Citrate) 210 Mg Tablet, 2 TAB PO TID for for 30 Days, #180 Ref 0 (Reported) Entered as Reported by: STACY PELLETIER RN on 10/12/212155 Last Action: Converted on 10/12/212203 by TONIO SEAMAN MD Furosemide (Furosemide) 20 Mg Tablet, 20 MG PO DAILY for CHF, #30 Ref 9 Prescribed by: CRISTIAN GONZALES MD on 10/16/21 1030 Hydralazine Hcl (Hydralazine Hcl) 25 Mg Tablet, 1 TAB PO BID for , #180 Ref 3 (Reported) Entered as Reported by: STACY PELLETIER RN on 10/12/212155 Last Action: Continued on 10/12/212203 by TONIO SEAMAN MD Isosorbide Mononitrate (Isosorbide Mononitrate Er) 30 Mg Tab.er.24h, 30 MG PO evening for irreg hr, (Reported) Entered as Reported by: HUBER FELDER on 08/22/182055 Last Action: Reviewed on 10/12/212155 by STACY PELLETIER RN Methoxy Peg-Epoetin Beta (Mircera) 200 Mcg/0.3 Ml Syringe, 200 MCG IV WEEKLY for , (Reported) Entered as Reported by: STACY PELLETIER RN on 10/12/212155 Last Action: HELD on 10/12/212203 by TONIO SEAMAN MD Methoxy Peg-Epoetin Beta (Mircera) 30 Mcg/0.3 Ml Syringe, 30 MCG IV WEEKLY for , (Reported) Entered as Reported by: STACY PELLETIER RN on 10/12/212155 Last Action: HELD on 10/12/212203 by TONIO SEAMAN MD Metoprolol Succinate (Toprol XL) 50 Mg Tab.er.24h, 50 MG PO DAILY for CAD, #30 Ref 9 Prescribed by: CRISTIAN GONZALES MD on 10/16/21 1030 Prasugrel Hcl (Effient) 10 Mg Tablet, 10 MG PO DAILYWBKFT for CAD for 30 Days, #30 Ref 9 Prescribed by: CRISTIAN GONZALES MD on 10/16/21 1030 Tolnaftate (Tinactin) 108 Gm Powder, 1 LUDIN TP BID for for 28 Days, #1 Ref 0 (Reported) NEEDED Entered as Reported by: STACY PELLETIER RN on 10/12/212155 Last Action: HELD on 10/12/212203 by TONIO SEAMAN MD Vit B Cmplx 3/Fa/Vit C/Biotin (Nephro-Luz Rx Tablet) 1 Each Tablet, 1 EACH PO DAILY for supplement, (Reported) Entered as Reported by: HUBER FELDER on 08/23/18331 Last Action: Reviewed on 10/12/212155 by STACY PELLETIER RN Scheduled PRN Ondansetron Hcl (Ondansetron Hcl) 4 Mg Tablet, 4 MG PO PRN BID PRN for NAUSEA/VOMITING, (Reported) Entered as Reported by: STACY PELLETIER RN on 10/12/212155 Last Action: HELD on 10/12/212203 by TONIO SEAMAN MD Discontinued Medications Aspirin (Aspirin Ec) 81 Mg Tablet.dr, 81 MG PO DAILYWBKFT for antiplatelet for 30 Days, #30 Prescribed by: FELIX LOPEZ MD on 08/24/18 7144 Last Action: Reviewed on 10/12/212155 by STACY PELLETIER RN Calcitriol (Calcitriol) 0.25 Mcg Capsule, 0.25 MCG PO QMWF for suppl, (Reported) Discontinued Reason: Prescription changed Entered as Reported by: HUBER FELDER on 08/22/182055 Carvedilol (Carvedilol) 25 Mg Tablet, 25 MG PO BIDWMEALS for CARDIAC, (Reported) Entered as Reported by: HUBER FELDER on 08/22/182055 Last Action: Reviewed on 10/12/212155 by STACY PELLETIER RN Ondansetron Hcl (Zofran) 8 Mg Tablet, 1 TAB PO Q8HRS for nausea, #30 Ref 1 (Reported) Discontinued Reason: Prescription changed Entered as Reported by: HUBER FELDER on 08/23/18331 Last Action: HELD on 10/12/211642 by TONIO SEAMAN MD Justicifation of Admission Dx: Justifications for Admission: Justification of Admission Dx: Yes CRISTIAN GONZALES MD Oct 16, 2021 10:35
[2021-10-16] MEDS: PANTOPRAZOLE 40 MG TABLET.DR. PO SCH (11:37)
[2021-10-16] MEDS: SENNOSIDES/DOCUSATE 8.6/50MG TABLET. PO SCH (11:37)
[2021-10-16] MEDS: METOPROLOL SUCC 24HR ER 50 MG TAB.ER.24H. PO SCH (11:37)
[2021-10-16] MEDS: ISOSORBIDE MONONITRATE ER 30 MG TAB.ER.24H PO SCH (11:37)
[2021-10-16] MEDS: CINACALCET HCL 30 MG TABLET PO SCH (11:38)
[2021-10-16] MEDS: hydrALAZINE 25 MG TABLET PO SCH (11:39)
[2021-10-16] MEDS: FUROSEMIDE 20 MG TABLET PO SCH (11:39)
--- NOTE | 2021-10-16 16:25 | NUR ---
Patient discharged back to [facility] at 1555. Report given to RN at the [facility]. Patient left with clothes he was wearing when he came into the hospital.
== END 2021-10-16 15:55 | DRG 216 ==
LOC: ER 14:50 → EEVIPCON 14:50 → ER 19:50 → 6 SOUTH 20:00 → 1 WEST ICU 10-14 10:46
PROVIDERS: ADMIT Student in an Organized Health Care Education/Training Program; ATTEND Student in an Organized Health Care Education/Training Program
PROC: 4A023N7 Measurement of Cardiac Sampling and Pressure, Left Heart, Percutaneous Approach (ICD-10-PCS; 2021-10-13)
PROC: B2111ZZ Fluoroscopy of Multiple Coronary Arteries using Low Osmolar Contrast (ICD-10-PCS; 2021-10-13)
PROC: 30233N1 Transfusion of Nonautologous Red Blood Cells into Peripheral Vein, Percutaneous Approach (ICD-10-PCS; 2021-10-14)
PROC: 5A1D70Z Performance of Urinary Filtration, Intermittent, Less than 6 Hours Per Day (ICD-10-PCS; 2021-10-14)
PROC: 027035Z Dilation of Coronary Artery, One Artery with Two Drug-eluting Intraluminal Devices, Percutaneous Approach (ICD-10-PCS; principal; 2021-10-15)
PROC: 02HA3RJ Insertion of Short-term External Heart Assist System into Heart, Intraoperative, Percutaneous Approach (ICD-10-PCS; 2021-10-15)
PROC: 02C03Z7 Extirpation of Matter from Coronary Artery, One Artery, Orbital Atherectomy Technique, Percutaneous Approach (ICD-10-PCS; 2021-10-15)
PROC: 5A0221D Assistance with Cardiac Output using Impeller Pump, Continuous (ICD-10-PCS; 2021-10-15)
PROC: 4A023N7 Measurement of Cardiac Sampling and Pressure, Left Heart, Percutaneous Approach (ICD-10-PCS; 2021-10-15)
PROC: B2111ZZ Fluoroscopy of Multiple Coronary Arteries using Low Osmolar Contrast (ICD-10-PCS; 2021-10-15)
PROC: 5A1D70Z Performance of Urinary Filtration, Intermittent, Less than 6 Hours Per Day (ICD-10-PCS; 2021-10-16)
DX: I21.4 Non-ST elevation (NSTEMI) myocardial infarction (principal); N18.6 End stage renal disease; I50.43 Acute on chronic combined systolic (congestive) and diastolic (congestive) heart failure; I47.2 Ventricular tachycardia; D63.8 Anemia in other chronic diseases classified elsewhere; E78.5 Hyperlipidemia, unspecified; G89.29 Other chronic pain; I25.5 Ischemic cardiomyopathy; I44.7 Left bundle-branch block, unspecified; I48.91 Unspecified atrial fibrillation; I73.9 Peripheral vascular disease, unspecified; E05.90 Thyrotoxicosis, unspecified without thyrotoxic crisis or storm; F32.A Depression, unspecified; F41.9 Anxiety disorder, unspecified; K21.9 Gastro-esophageal reflux disease without esophagitis; M19.90 Unspecified osteoarthritis, unspecified site; I25.110 Atherosclerotic heart disease of native coronary artery with unstable angina pectoris; Z79.899 Other long term (current) drug therapy; Z82.49 Family history of ischemic heart disease and other diseases of the circulatory system; Z86.73 Personal history of transient ischemic attack (TIA), and cerebral infarction without residual deficits; Z87.891 Personal history of nicotine dependence; Z99.2 Dependence on renal dialysis; Z88.0 Allergy status to penicillin
CPT/HCPCS: 33210; 33991; 92933; 93458; 96365; 96366; 96367; 96375; 96376; 99285; C8929; G0269; 36415; 36430; 71045; 76937; 80048; 80053; 80061; 83735; 83880; 84443; 84484; 85025; 85027; 85347; 85520; 85610; 85730; 86317; 86706; 86850; 86900; 86901; 86920; 87340; 93005; 99152; 99153; C1725; C1874; C1894; J0282; J1644; J2250; J2405; J3010; J3490; J7060; P9016; Q9956; Q9967; G0378